=== PATIENT | male | born 1945 | race Caucasian/White ===

== ENCOUNTER → 2017-12-18 07:04 | Outpatient (CLI) | payer SELFPAY ==
[2017-12-18 08:29] LABS: AST(SGOT) 18 U/L (15-37); Alanine Aminotransfer ALT/SGPT 27 U/L (16-61); Albumin, Serum 3.6 g/dL (3.2-5.0); Alkaline Phosphatase 84 U/L (45-117); Bilirubin, Direct 0.12 mg/dL (0.00-0.30); Cholesterol 298 mg/dL (200); Globulin 4.4 g/dL (2.2-4.2); High Density Lipoprotein 50 mg/dL; Triglycerides 121 mg/dL; Very Low Density Lipoprotein 24 mg/dL (5-40)
== END ==
PROVIDERS: Family Provider Family Medicine; PCP Family Medicine; Referring Provider Internal Medicine Cardiovascular Disease; Visit Provider Internal Medicine Cardiovascular Disease
DX: E78.5 Hyperlipidemia, unspecified (principal); E78.2 Mixed hyperlipidemia
CPT/HCPCS: 36415; 80061; 80076

== ENCOUNTER → 2019-01-19 07:29 | Outpatient (CLI) | payer SELFPAY ==
[2018-11-07 15:33] VITALS: BMI 25.1
[2019-01-19 08:41] LABS: AST(SGOT) 21 U/L (15-37); Alanine Aminotransfer ALT/SGPT 28 U/L (16-61); Albumin, Serum 3.8 g/dL (3.2-5.0); Alkaline Phosphatase 96 U/L (45-117); Bilirubin, Direct 0.12 mg/dL (0.00-0.30); Cholesterol 291 mg/dL (200); Globulin 4.2 g/dL (2.2-4.2); High Density Lipoprotein 54 mg/dL; Triglycerides 113 mg/dL; Very Low Density Lipoprotein 23 mg/dL (5-40)
== END ==
PROVIDERS: Family Provider Family Medicine; PCP Family Medicine; Referring Provider Nurse Practitioner Family; Visit Provider Nurse Practitioner Family
DX: E78.5 Hyperlipidemia, unspecified (principal)
CPT/HCPCS: 36415; 80061; 80076

== ENCOUNTER 2019-08-03 06:44 | Inpatient (IN) | payer OTHER, SELFPAY ==
[2018-11-07 15:33] VITALS: BMI 25.1
[2019-08-03] VITALS (10 sets, daily range): BP systolic 136–163; BP diastolic 48–79; PULSE 60–68; RESP 14–23; TEMP 37–37.4; O2SAT 91–98; BMI 25.9; BMI 25.4; BMI 25.5
--- NOTE | 2019-08-03 07:26 | EKG12_ITS ---
Test Reason : Blood Pressure : / mmHG Vent. Rate : 063 BPM Atrial Rate : 063 BPM P-R Int : 224 ms QRS Dur : 092 ms QT Int : 410 ms P-R-T Axes : 067 050 041 degrees QTc Int : 419 ms Atrial-paced rhythm with prolonged AV conduction Abnormal ECG Confirmed by DEMETRIS DAY, LELIA ([id number]), assistant editor OVI ELLIOTT ([id number]) on 08/06/2019 3:00:51 PM Referred By: UCHE Confirmed By:LELIA WILLSON MD
--- NOTE | 2019-08-03 07:26 | RAD_ITS ---
STUDY: X-RAY CHEST REASON FOR EXAM: Male, 74 years old. COUGH, fever, nausea -- x 2 weeks TECHNIQUE: Single AP portable view of the chest. COMPARISON: February 21, 2017 FINDINGS: Pacemaker device on the left is stable. There are monitoring devices. There are bilateral mid and lower lung groundglass and airspace increased opacities. There is no demonstrated pleural abnormality. Sternal cerclage wires are present from a prior sternotomy. Normal mediastinum and kim. Normal visualized pulmonary arteries. Normal visualized aortic arch and descending thoracic aorta. There is demineralization of the osseous structures. Normal visualized ribs, clavicles, and shoulders. There is no demonstrated abnormality of the visualized soft tissue structures of the upper abdomen. RAD/Chest 1 View (Portable) IMPRESSION: Bilateral pneumonia or edema. Electronically Signed: Ovidio Ambrocio MD at 8:28 EDT , Service support ,
--- NOTE | 2019-08-03 07:27 | ED.DCSUM_ITS ---
History of Present Illness Chief Complaint: Fever Informant: Patient Onset: Weeks - 2 Timing: Continuous Narrative: Patient is a 74-year-old [employer] male with history of aortic valve stenosis, coronary artery disease status post CABG, pacemaker implant and hyperlipidemia presenting with 2 weeks of fever, myalgias, cough and nausea. Patient states is been having low-grade temperatures of 99 which is been checking every morning. States he has had some mild epigastric discomfort which she describes as a nausea. He initially stated he had chest pain but he states it is more of a queasy feeling. He has had multiple contacts who have been diagnosed with COVID-19 through his quaker. Patient states he has been more short of breath and had decreased appetite. He denies any other complaints at this time. He states he is usually quite healthy and active. He does not wear oxygen at baseline. Patient denies any swelling of his extremities, change in his bowel habits, abdominal pain or urinary symptoms. Past Medical History - Allergies and Home Meds Allergies/Adverse Reactions: Allergies atorvastatin [From Lipitor] Allergy (Verified 08/03/19 07:01) Unknown Primary Care Physician: Raymond Whitaker DO [Primary Care Provider] - Past Medical History: - - Aortic stenosis, coronary artery disease, hyper lipidemia, sick sinus syndrome status post pacemaker placement Surgical History: coronary bypass surgery Lives: Spouse/ Significant Other Smoking Status: Never smoker Review of Systems General: Reports: Chills, Fever, Malaise, - - Anorexia. Denies: Sweats Eyes: Denies: Visual changes - bilaterally, Diplopia ENT: Denies: Rhinorrhea, Sore throat Cardiovascular: Denies: Chest pain, Palpitations Respiratory: Reports: Dyspnea, Cough. Denies: Sputum, Dyspnea on exertion Gastrointestinal: Reports: Nausea. Denies: Abdominal pain, Vomiting, Diarrhea, Melena, Hematochezia Genitourinary: Denies: Dysuria, Hematuria, Frequency Musculoskeletal: Denies: Back pain, Extremity Pain Skin: Denies: Rash, Wounds Neurological: Denies: Headache, Weakness, Numbness Physical Exam Vital Signs/Narrative: Vital Signs Temp Pulse Resp BP Pulse Ox 08/03/19 06:45 99.1 F 67 23 H 136/79 H 91 Inital Vital Signs reviewed: Yes General: Well nourished, Well developed, No Acute Distress Head: Normocephalic, Atraumatic Eyes: Perrl, EOMI ENT: Moist mucous membranes, No rhinorrhea Neck: Supple, Nontender, No JVD Cardiovascular: Regular rate, Regular rhythm, Murmur Respiratory: Chest nontender, - - Crackles on the right upper and lower lung josue, tachypnea. Negative for: Decreased Air Movement, Retractions Abdomen: Soft, Nontender, Nondistended, Normal bowel sounds Back: Nontender, Normal Inspection Extremities: Nontender, No edema. Negative for: Edema, Calf Tenderness Skin: Normal color, No rash, - - Very warm to the touch Neurological: Alert, Oriented x3, Cranial nerves II-XII grossly intact, Normal Strength, Normal Sensation Psychological: Normal affect, Normal Mood Diagnostic/Tx/Re-eval Chest X-Ray - ED: 1 View, Read by ED Physician, Read by Radiologist, Right Infiltrate, Left Infiltrate Clinical Impression(s) from Imaging Studies Chest X-Ray 08/03/19 07:26 IMPRESSION: Bilateral pneumonia or edema. Electronically Signed: Ovidio Ambrocio MD at 8:28 EDT , Service support , Laboratory Data 08/03/19 08/03/19 08/03/19 07:00 07:00 07:00 WBC 10.3 RBC 3.83 L Hgb 12.1 L Hct 35.9 L MCV 93.7 MCH 31.6 MCHC 33.7 RDW Std Deviation 43.3 RDW Coeff of Jazmine 12.7 Plt Count 358 MPV 10.7 Immature Gran % (Auto) 0.400 Neut % (Auto) 80.4 H Lymph % (Auto) 9.7 L [place] % (Auto) 8.7 Eos % (Auto) 0.5 Baso % (Auto) 0.3 Absolute Neuts (auto) 8.3 H Absolute Lymphs (auto) 1.00 Nucleated RBC % 0 Sodium 134 L Potassium 3.8 Chloride 102 Carbon Dioxide 25.0 Anion Gap 7 BUN 14 Creatinine 0.94 Estim Creat Clear Calc 69.99 Est GFR (MDRD) Af Amer 101 Est GFR (MDRD) Non-Af 84 BUN/Creatinine Ratio 14.9 Glucose 134 H Lactic Acid 1.4 Calcium 8.7 Total Bilirubin 0.70 AST 33 ALT 44 Alkaline Phosphatase 107 Troponin I < 0.015 Total Protein 7.8 Albumin 2.6 L Globulin 5.2 H Albumin/Globulin Ratio 0.5 L COVID-19 (LELO) 08/03/19 07:00 WBC RBC Hgb Hct MCV MCH MCHC RDW Std Deviation RDW Coeff of Jazmine Plt Count MPV Immature Gran % (Auto) Neut % (Auto) Lymph % (Auto) [place] % (Auto) Eos % (Auto) Baso % (Auto) Absolute Neuts (auto) Absolute Lymphs (auto) Nucleated RBC % Sodium Potassium Chloride Carbon Dioxide Anion Gap BUN Creatinine Estim Creat Clear Calc Est GFR (MDRD) Af Amer Est GFR (MDRD) Non-Af BUN/Creatinine Ratio Glucose Lactic Acid Calcium Total Bilirubin AST ALT Alkaline Phosphatase Troponin I Total Protein Albumin Globulin Albumin/Globulin Ratio COVID-19 (LELO) Cancelled - Rhythm Strip Rhythm Strip: Sinus Rhythm Rate: 63 Ectopy: None - EKG Initial EKG Interpretation: Sinus Rhythm, - - Paced rhythm at a rate of 63 Normal intervals except for prolonged GA interval [address] segments - Medical Decision Making Evaluated for 2 weeks of fever, myalgias, cough and progressive shortness of breath. Patient is 91% at rest on arrival via EMS. He has had multiple exposures to COVID patients in the community. Patient is tachypneic. He is given IV fluids. Chest x-ray is concerning for by lateral pneumonia. COVID swab is pending but I have a high suspicion for coronavirus infection as a cause of his symptoms. He will be placed on empiric antibiotics, Rocephin and azithromycin. Due to patient's bilateral pneumonia and O2 saturation he will be admitted for further treatment and monitoring. He is agreeable with this plan. He is otherwise stable. He does not have any other significant laboratory abnormalities. ED Disposition - Plan for ED Patient: Disposition: Acute Care Hospital [facility] Diagnosis: Bilateral pneumonia, Suspected COVID-19 virus infection, Dyspnea Referrals: Raymond Whitaker DO [Primary Care Provider] -
[2019-08-03 07:46] LABS: Absolute Neutrophil Count 8.3 X10^3/uL (2.0-7.7); Basophil# 0.03 X10^3/uL; Basophil% 0.3 % (0-1); Eosinophil# 0.05 X10^3/uL; Eosinophils% 0.5 % (0-5); Hematocrit 35.9 % (40-54); Hemoglobin 12.1 g/dL (13.0-16.5); Lymphocyte % 9.7 % (19-41); Mean Corp Hgb Conc 33.7 g/dL (32-36); Mean Corpuscular Hgb 31.6 pg (27.0-32.0); Mean Corpuscular Volume 93.7 fL (80-94); Mean Platelet Vol. 10.7 fl (6.2-12.0); Monocyte# 0.89 X10^3/uL; Monocyte% 8.7 % (0-10); NRBC Flagged by Analyzer 0 % (0-5); Neutrophil # 8.25 X10^3/uL (2.7-7.7); Neutrophil % 80.4 % (47-70); Platelet Count 358 K/mm3 (150-450); RBC Distribution Width CV 12.7 % (11.6-14.6); RBC Distribution Width SD 43.3 fl (35.1-43.9); Red Blood Count 3.83 M/mm3 (4.6-6.2); White Blood Count 10.3 K/mm3 (4.4-11.0)
[2019-08-03 07:58] LABS: ALB/GLOB Ratio 0.5 RATIO (0.9-2.4); AST(SGOT) 33 U/L (15-37); Alanine Aminotransfer ALT/SGPT 44 U/L (16-61); Albumin, Serum 2.6 g/dL (3.2-5.0); Alkaline Phosphatase 107 U/L (45-117); Anion Gap 7 (5-15); BUN 14 mg/dL (7-18); BUN/Creat Ratio 14.9 RATIO (10-20); Calcium,Total 8.7 mg/dL (8.5-10.1); Chloride 102 mmol/L (98-107); Creatinine, Serum 0.94 mg/dL (0.70-1.30); EST Glomerular Filtration Rate 84 mL/min (>60); Est Glom Filt Rate - Afr Amer 101 mL/min (>60); Estimated Creatinine Clearance 69.99 ml/min; Globulin 5.2 g/dL (2.2-4.2); Glucose 134 mg/dL (74-106); Lactic Acid 1.4 mmol/L (0.4-1.9); Potassium 3.8 mmol/L (3.5-5.1); Protein, Total 7.8 g/dL (6.4-8.2); Sodium Level 134 mmol/L (136-145)
[2019-08-03] MEDS: 0.9% Normal Saline 1,000 ML 125 ML IV (08:04)
[2019-08-03] MEDS: Acetaminophen 325 MG Tablet 650 MG PO (08:05)
[2019-08-03] MEDS: Ondansetron 4 MG/2 ML Vial IV (08:05)
--- NOTE | 2019-08-03 09:01 | HP.PCM_ITS ---
Problem List (1) Bilateral pneumonia Status: Acute Qualifiers: Pneumonia type: due to unspecified organism Lung location: unspecified part of lung Qualified Code(s): J18.9 - Pneumonia, unspecified organism (2) Suspected COVID-19 virus infection Status: Acute (3) Nonrheumatic aortic (valve) stenosis with insufficiency Status: Chronic (4) Atherosclerosis of coronary artery of [place] heart without angina pectoris Status: Chronic Qualifiers: Coronary Disease-Associated Artery/Lesion type: [place] artery Qualified Code(s): I25.10 - Atherosclerotic heart disease of [place] coronary artery without angina pectoris (5) History of permanent cardiac pacemaker placement Status: Resolved (6) H/O coronary artery bypass surgery Status: Resolved Comment: CABG x 4 RENEE-LASD, SVG-D1, SVG-OM1, SVG-RPDA 08/16/2005; redo sternotomy AVR w/ 23 mm Medtronic bioprosthetic heart valve and CABG x 1 SVG-RPDA 08/24/2015 (7) H/O aortic valve replacement Status: Resolved Comment: redo sternotomy AVR w/ 23 mm Medtronic bioprosthetic heart valve and CABG x 1 SVG-RPDA (8) History of coronary artery stent placement Status: Resolved Comment: PCI-PATRICIA Mid LCx w/ 4.0 x 28 mm Promus Stent, PATRICIA-Mid SVG-RPDA w/ 4 x 15 mm Promus 04/28/09, [id number] LM w/ 4.0 x 28 mm Xience Alpine Stent 09/25/2014 (9) Sick sinus syndrome Status: Chronic History of Present Illness Date of Admission: 08/03/19 Chief Complaint: Fever, Dyspnea, Cough, Nausea The patient is a 74 y/o M w/ PMHx: HLD, Hypothyroidism, Hx Sick sinus syndrome s/p pacemaker status, CAD s/p CABG x 4 and PCI, Valvular Heart Disease s/p AVR with medtronic bioprosthetic valve who presents to the [facility] ED on 08/03/19 with history of dyspnea with dry cough, poor appetite, nausea with dry heaving, myalgias and arthralgias x 2 weeks with intermittent low grade temperatures with multiple ill contacts at his mandaeism who have been diagnosed with COVID-19 prompting eventual ED presentation given he had been worsening. He notes also concurrent intermittent BL frontal throbbing headache and alteration to both his sense of taste and smell. He denies any diarrhea or abdominal pain. Work-up in the ED included T 99.1, heart rate 67, BP 136/79, respiratory rate 23, 91% on room air, CBC with WBC 10.3, hemoglobin 12.1, platelet 358 with left shift, CMP with sodium 134, glucose 134, lactic acid 1.4, troponin less than 0.015, blood culture x2 pending per ED, COVID testing pending per ED, chest x-ray with concern for possible bilateral pneumonia versus edema, EKG w/ sinus rhythm, paced without acute evidence of ischemia. In the ED patient administered tylenol, zofran, NS. Discussed presentation with the ED physician and requested azithromycin and Rocephin be administered. Past Medical History Past Medical History (Chronic Problems): Chronic Problems (Last Updated 10/17/18 @ 15:15 by Zoe Diaz) Nonrheumatic aortic (valve) stenosis with insufficiency (Chronic) Atherosclerosis of coronary artery of [place] heart without angina pectoris (Chronic) Atherosclerosis of coronary artery bypass graft without angina pectoris (Chron ic) HLD (hyperlipidemia) (Chronic) Sick sinus syndrome (Chronic) Medical History: Medical History (Last Updated 10/17/18 @ 15:15 by Zoe Diaz) Nonrheumatic aortic (valve) stenosis with insufficiency (Chronic) I35.2 Atherosclerosis of coronary artery of [place] heart without angina pectoris (Chronic) I25.10 Atherosclerosis of coronary artery bypass graft without angina pectoris (Chronic) I25.810 HLD (hyperlipidemia) (Chronic) E78.5 Sick sinus syndrome (Chronic) I49.5 Hypothyroidism E03.9 Allergies atorvastatin [From Lipitor] Allergy (Verified 08/03/19 07:01) Unknown Home Medications: Ambulatory Orders Medication Instructions Recorded aspirin 81 mg tablet,delayed 81 mg PO QDAY 02/15/17 release coenzyme Q10 100 mg capsule 100 mg PO QDAY 02/15/17 nitroglycerin 0.4 mg sublingual 0.4 mg SUBLINGUAL Q5M PRN 02/15/17 tablet levothyroxine 50 mcg capsule 50 mcg PO DAILY #30 cap 03/20/18 simvastatin 40 mg tablet 40 mg PO QPM #90 tab 11/07/18 Surgical History: Surgical History (Last Updated 08/07/19 @ 15:15 by Zoe Diaz) History of permanent cardiac pacemaker placement (Resolved) Onset Date: 02/20/17 Z95.0 H/O coronary artery bypass surgery (Resolved) Onset Date: 08/24/15 Z95.1 CABG x 4 RENEE-LASD, SVG-D1, SVG-OM1, SVG-RPDA 08/16/2005; redo sternotomy AVR w/ 23 mm Medtronic bioprosthetic heart valve and CABG x 1 SVG-RPDA 08/24/2015 H/O aortic valve replacement (Resolved) Onset Date: 08/24/15 Z95.2 redo sternotomy AVR w/ 23 mm Medtronic bioprosthetic heart valve and CABG x 1 SVG-RPDA History of coronary artery stent placement (Resolved) Onset Date: 09/25/14 Z95.5 PCI-PATRICIA Mid LCx w/ 4.0 x 28 mm Promus Stent, PATRICIA-Mid SVG-RPDA w/ 4 x 15 mm Promus 04/28/09, [id number] LM w/ 4.0 x 28 mm Xience Alpine Stent 09/25/2014 Surgical History: coronary bypass surgery, - - CABG x4, PCI, pacemaker basement, AVR. Psychiatric History: No pertinent psych hx Lives: Spouse/ Significant Other Smoking Status: Never smoker Tobacco Use: Non-smoker Alcohol: None Drugs: None - *Family History Maternal Family History: Family History (Last Reviewed 10/31/17 @ 15:[address] Hoang Benson MD) Father CAD (coronary artery disease) Brother CAD (coronary artery disease) Sister Myocardial infarction CAD (coronary artery disease) History Items: High Cholesterol, Heart Disease, Hypertension Paternal Family History: Family History (Last Reviewed 10/31/17 @ 15:[address] Hoang Benson MD) Father CAD (coronary artery disease) Brother CAD (coronary artery disease) Sister Myocardial infarction CAD (coronary artery disease) History Items: High Cholesterol, Heart Disease, Hypertension Review of Systems Constitutional: Reports: Anorexia, Chills, Fever, Malaise, Weakness, Fatigue. Denies: Weight Change HEENT: Reports: Head Aches, Nasal Congestion, Sinus Congestion. Denies: Sinus Drainage Cardiovascular: Denies: Chest Pain, Chest Pressure, Chest Tightness, Edema, Light Headedness, Orthopnea, Palpitations Respiratory: Reports: Cough, Shortness of Breath, Shortness of breath at rest, Shortness of breath upon exertion. Denies: Sputum production, Wheezing Gastrointestinal: Reports: Nausea, Vomiting. Denies: Abdominal Pain Genitourinary: Denies: Dysuria Musculoskeletal: Reports: Joint Pain, Muscle pain. Denies: Joint Tenderness Skin: Denies: Rash, Wounds Neurological: Denies: Numbness, Tingling, Focal weakness Psychiatric: Denies: Anxiety, Depression, Homicidal Ideations, Suicidal Ideations Hematologic/ Lymphatic: Reports: Easy Bruising, Easy Bleeding VTE Information - Inpt Only VTE Present on Admission: No VTE Mechan Device Prophylaxis: SCD's VTE Pharm Prophylaxis ordered?: Yes Patient Problems: Active and Suspected Problems (Last Updated 10/17/18 @ 15:15 by Zoe Diaz) Bilateral pneumonia (Acute) Suspected COVID-19 virus infection (Acute) Dyspnea (Acute) Subjective: Patient seated upright in the ED bed, no acute distress, ill-appearing and fatigued. Objective: Physical Examination: General: awake, alert, oriented x 3 and cooperative, seated upright in the ED bed, fatigued and ill-appearing but no obvious distress. Skin: normal color, turgor, no icterus, cyanosis. HEENT: AT/NC, EOMI, PERRLA, dry MM, no carotid bruits or JVD noted. Lungs: Diminished breath sounds, greater bases, mild rales bilateral bases, no obvious rhonchi or wheezing, no evidence of distress. Heart: Regular rate and rhythm (paced); no gallop, rub audible. Abdomen: soft, NTTP, ND, mildly hyperactive BS, no HSM. Extremities: no cyanosis, clubbing, or edema. Neurological: patient awake, alert, oriented as noted; cognitive function appears baseline intact; pupils equally reactive to light and accomodation; cranial nerves II-XII grossly normal, moving all 4 extremities, no focal deficits, strength moderately to severely global decrease secondary to acute presentation. Psychiatric: affect appears fatigued and ill-appearing, no acute evidence of depressive or anxiety feelings. - Physical Exam Vitals/I&O's: Vital Signs Temp Pulse Resp BP Pulse Ox 99.1 F 67 23 H 136/79 H 91 08/03/19 06:45 08/03/19 06:45 08/03/19 06:45 08/03/19 06:45 08/03/19 06:45 Oxygen Delivery Method Room Air Weight: 175 lb 7.807 oz Body Mass Index (BMI) 25.9 Laboratory Results 08/03/19 07:00: WBC 10.3, RBC 3.83 L, Hgb 12.1 L, Hct 35.9 L, MCV 93.7, MCH 31.6, MCHC 33.7, RDW Std Deviation 43.3, RDW Coeff of Jazmine 12.7, Plt Count 358, MPV 10.7, Immature Gran % (Auto) 0.400, Neut % (Auto) 80.4 H, Lymph % (Auto) 9.7 L, [place] % (Auto) 8.7, Eos % (Auto) 0.5, Baso % (Auto) 0.3, Absolute Neuts (auto) 8.3 H, Absolute Lymphs (auto) 1.00, Nucleated RBC % 0 08/03/19 07:00: Sodium 134 L, Potassium 3.8, Chloride 102, Carbon Dioxide 25.0, Anion Gap 7, BUN 14, Creatinine 0.94, Estim Creat Clear Calc 69.99, Est GFR (MDRD) Af Amer 101, Est GFR (MDRD) Non-Af 84, BUN/Creatinine Ratio 14.9, Glucose 134 H, Calcium 8.7, Total Bilirubin 0.70, AST 33, ALT 44, Alkaline Phosphatase 107, Troponin I < 0.015, Total Protein 7.8, Albumin 2.6 L, Globulin 5.2 H, Albumin/Globulin Ratio 0.5 L 08/03/19 07:00: Lactic Acid 1.4 08/03/19 07:00: COVID-19 (LELO) Cancelled Current Medications Sodium Chloride () 1,000 mls @ 125 mls/hr IV .Q8H JOSEPH Last Admin: 08/03/19 08:04 Dose: 125 mls/hr Documented by: Assessment/Plan All Active Problems (Last Updated 10/17/18 @ 15:15 by Zoe Diaz) Bilateral pneumonia (Acute) Suspected COVID-19 virus infection (Acute) Dyspnea (Acute) History of permanent cardiac pacemaker placement (Resolved 02/20/17) H/O coronary artery bypass surgery (Resolved 08/24/15) H/O aortic valve replacement (Resolved 08/24/15) History of coronary artery stent placement (Resolved 09/25/14) The patient is a 74 y/o M w/ PMHx: HLD, Hypothyroidism, Hx Sick sinus syndrome s/p pacemaker status, CAD s/p CABG x 4 and PCI, Valvular Heart Disease s/p AVR with medtronic bioprosthetic valve who presents to the [facility] ED on 08/03/19 with history of dyspnea with dry cough, poor appetite, nausea with dry heaving, myalgias and arthralgias x 2 weeks with intermittent low grade temperatures with multiple ill contacts at his [employer]ae[employer] who have been diagnosed with COVID-19 prompting eventual ED presentation given he had been worsening. 1. Acute Dyspnea, Cough, N/Dry heaves, Fever with c/o Bilateral Pneumonia secondary to Suspected Acute Viral Syndrome, COVID-19: Will admit to the COVID unit pending the ED COVID testing, will maintain on oxygen with wean as tolerated to room air, continue PRN albuterol, maintain on IV Rocephin and Azithromycin, HOB, IS parameters w/ pending sputum cultures and urine antigens, will obtain procalcitonin, CRP, CPK, Ferritin, LDH, d-dimer, continue supportive care including q 2 hour turning including prone given no prone bed availability, obtain BNP but clinically not consistent, if not marked continue judicious hydration, If patient worsens with need for oxygen >6 L would plan intubation with ICU physician continued care. Bld cx x 2 obtained in the ED. If D-dimer significantly elevated would pursue CTPA and start on therapeutic lovenox pending these results. If initial COVID negative will plan repeat testing in 24 hours. 2. CAD: Status post CABG x4 and PCI, continue aspirin, statin therapy, not on beta-justina, encourage continued outpatient follow-up, troponin x1 normal, continue to cycle and maintain on telemetry given cardiac history with #1 presentation. 3. Valvular heart disease: Status post AVR, Medtronic bioprosthetic valve. 4. Hypothyroidism: Continue home synthroid regimen, TSH pending. 5. Hyperlipidemia: Continue home statin regimen. 6. History of sick sinus syndrome: Status post pacemaker status. 7. DVT prophylaxis: SCDs, Lovenox with pending d-dimer as noted. 8. CODE status: Patient DEBI is his and living will is currently in place. Discussed CODE status at length including difference between FULL code, D NR-CCA and DNR-CC status. Following discussions about the differences in these status, requested full code status. Advanced Care Planning Face to Face Time: 16 minutes. Inpatient E&M: 30232 Init Hosp L3 Procedures: 45655 Advncd Care Plan 30 Min
--- NOTE | 2019-08-03 09:21 | NURSING ---
ms2 covid sam pneumonia,, suspect covid white
--- NOTE | 2019-08-03 09:35 | NURSING ---
[id number]
[2019-08-03] MEDS: Ceftriaxone 1 GM/50 ML BAG IV (09:41)
--- NOTE | 2019-08-03 12:12 | CT_ITS ---
STUDY: CTA CHEST REASON FOR EXAM: Male, 74 years old. DYSPNEA, DRY COUGH,NAUSEA W/ DRY HEAVES, LOSS OF APPETITE, LOW GRADE FEVER -- BILAT PNEUMONIA, SUSPECT COVID -- CABG X4, HEART STENT, PACER, AORTIC VALVE REPLACED RADIATION DOSAGE (If Supplied By Facility): CTDIvol = ( 11.8 ) mGy, DLP = ( 427.55 ) mGycm TECHNIQUE: The examination was performed with the intravenous administration of 100CC ISOVUE 370. Post-processing of the angiographic images was performed, with multiplanar reformation and 3D reconstruction. Individualized dose optimization techniques were used for this CT. COMPARISON: None. FINDINGS: Normal enhancement of the main pulmonary artery and right and left pulmonary arteries. Normal enhancement of the bilateral peripheral pulmonary arteries. There is no demonstrated pulmonary embolism. There is atherosclerotic calcification of the aortic arch with tortuosity. There is no demonstrated aortic dissection. Normal heart and pericardium. Sternal wires and mediastinal surgical clips compatible with prior CABG. Cardiac conduction device via the left subclavian vein present with leads extending to the right atrium and right ventricle. Aortic valve replacement noted. Few scattered prominent lymph nodes but no dominant shaun adenopathy. Normal hilar regions. No endobronchial lesions demonstrated. Mild scattered bronchiectasis. The lungs are well expanded. There are geographic peripheral dominant areas of groundglass opacity involving multiple pulmonary lobes. There are scattered areas of localized consolidation involving the posterior right upper lobe (image [id number] in the lingula (image 113) Subpleural atelectasis of the bilateral lower lobes identified. No cavitating process. Normal pleura. Normal chest wall structures. There are degenerative changes of thoracic spine. Normal visualized upper abdomen. CT/CTA Chest W/WO Contrast IMPRESSION: 1. No central or segmental pulmonary embolism. 2. Peripheral, bilateral/multilobar groundglass opacities with scattered consolidation. Commonly reported imaging features of COVID-19 PNEUMONIA are present as suspected in provided clinical history. Other processes such as influenza pneumonia, organizing pneumonia, drug toxicity and connective tissue disease can cause similar imaging pattern. Electronically Signed: Franky Hubbard MD ([place]) at 14:36 EDT , Service support ,
[2019-08-03 12:31] LABS: CPK Total, Creatine Kinase 61 U/L (39-308); Ferritin 636 ng/mL (26-388); LDH 277 U/L (87-241); Magnesium 2.2 mg/dL (1.6-2.6)
--- NOTE | 2019-08-03 12:34 | CASEMGMT ---
EVA ARZOLA assessment: Phone interview with patient for initial transition planning/care coordination assessment. EVA ARZOLA introduced self and role at [facility], pt voices understanding and consents to assessment at this time. Pt is A/Ox4 at this time and answers all questions appropriately at this time. Care providers, pharmacy, and demographics verified at this time. Presentation: Nausea, fever, dry cough Admitting dx: Bilat pna, possible COVID PCP: Julianne Specialists: Kelley cardio Preferred Pharmacy: [facility] Insurance: [facility] [place] Pres[place] Benefit: Self Living Will/HPOA: Pt states does have LW/HPOA and is aware that it is not on file at [facility] at this time. Pt states his eldest son, Sudarshan Triplett, is HPOA. LNOK: Sudarshan Triplett, son; Juarez Edward, son in law Living Arrangements: Pt states lives family in home and states no concerns at home at this time. Pt states is independent with ADL's. Pt states good family support. Transportation: Pt states no transportation concerns at this time. DME/HHC: Pt states no current DME and denies need for any at this time. Pt states can get DME from family, if needed. Pt states no hx of HHC or SNF in the past. Pt states no concerns with going home at time of discharge. 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 Pt states does not smoke or drink ETOH. Pt states no further questions/concerns/needs at this time. CM to follow for any further discharge planning/needs. Advised pt to ask for CM if any further questions/concerns/needs arise, voices understanding. Pt Goal: Home Plan[place] EVA ARZOLA
[2019-08-03 12:45] LABS: BNP,B-Type NATRIURETIC PEPTIDE 92.7 pg/mL (0-100); Hemoglobin A1c 6.3 % (3.8-5.6)
[2019-08-03 12:48] LABS: Procalcitonin 0.06 ng/mL (0.00-0.09)
[2019-08-03 13:55] LABS: International Normalized Ratio 1.1; Prothrombin Time (Protime)PT. 13.7 SECONDS (11.7-14.9)
[2019-08-03 13:56] LABS: Partial Thromboplast Time 32.1 Seconds (24.1-36.2)
[2019-08-03 14:16] LABS: M R Staph aureus DNA By PCR Negative (Negative); Probe Check PASS; Specimen Processing Control PASS
[2019-08-03] MEDS: Enoxaparin 80 MG/0.8 ML Syringe SC ×2 (15:01→21:07)
[2019-08-03] MEDS: Simvastatin 20 MG Tablet 40 MG PO (21:07)
[2019-08-03] MEDS: Famotidine 20 MG Tablet PO (21:07)
[2019-08-03] MEDS: guaiFENesin 10 ML UDC (200MG/10ML) 20 ML PO (21:14)
[2019-08-04] VITALS (21 sets, daily range): BP systolic 112–167; BP diastolic 33–103; PULSE 60; RESP 14–19; TEMP 36.8–37.1; O2SAT 84–98
[2019-08-04 04:48] LABS: Absolute Lymphocyte Count 2.14 X10^3/uL (0.83-4.51); Absolute Neutrophil Count 6.1 X10^3/uL (2.0-7.7); Basophil# 0.04 X10^3/uL; Basophil% 0.4 % (0-1); Eosinophil# 0.15 X10^3/uL; Eosinophils% 1.6 % (0-5); Hematocrit 33.7 % (40-54); Hemoglobin 11.3 g/dL (13.0-16.5); Lymphocyte # 2.14 X10^3/ul (4.0); Lymphocyte % 22.4 % (19-41); Mean Corp Hgb Conc 33.5 g/dL (32-36); Mean Corpuscular Hgb 31.7 pg (27.0-32.0); Mean Corpuscular Volume 94.4 fL (80-94); Mean Platelet Vol. 10.6 fl (6.2-12.0); Monocyte# 1.15 X10^3/uL; NRBC Flagged by Analyzer 0 % (0-5); Neutrophil # 6.05 X10^3/uL (2.7-7.7); Neutrophil % 63.2 % (47-70); Platelet Count 407 K/mm3 (150-450); RBC Distribution Width CV 12.7 % (11.6-14.6); RBC Distribution Width SD 43.9 fl (35.1-43.9); Red Blood Count 3.57 M/mm3 (4.6-6.2); White Blood Count 9.6 K/mm3 (4.4-11.0)
[2019-08-04 05:04] LABS: ALB/GLOB Ratio 0.5 RATIO (0.9-2.4); AST(SGOT) 43 U/L (15-37); Alanine Aminotransfer ALT/SGPT 62 U/L (16-61); Albumin, Serum 2.4 g/dL (3.2-5.0); Alkaline Phosphatase 114 U/L (45-117); Anion Gap 5 (5-15); BUN 15 mg/dL (7-18); BUN/Creat Ratio 16.5 RATIO (10-20); Calcium,Total 8.5 mg/dL (8.5-10.1); Chloride 104 mmol/L (98-107); Creatinine, Serum 0.91 mg/dL (0.70-1.30); EST Glomerular Filtration Rate 87 mL/min (>60); Est Glom Filt Rate - Afr Amer 105 mL/min (>60); Globulin 4.9 g/dL (2.2-4.2); Glucose 99 mg/dL (74-106); Potassium 4.1 mmol/L (3.5-5.1); Protein, Total 7.3 g/dL (6.4-8.2); Sodium Level 136 mmol/L (136-145)
--- NOTE | 2019-08-04 06:43 | PCM.PN.HOSP ---
Patient Problems: Active and Suspected Problems (Last Updated 10/17/18 @ 15:15 by Zoe Diaz) Bilateral pneumonia (Acute) Suspected COVID-19 virus infection (Acute) Dyspnea (Acute) Subjective: The patient is a 74 y/o M w/ PMHx: HLD, Hypothyroidism, Hx Sick sinus syndrome s/p pacemaker status, CAD s/p CABG x 4 and PCI, Valvular Heart Disease s/p AVR with medtronic bioprosthetic valve who presents to the [facility] ED on 08/03/19 with history of dyspnea with dry cough, poor appetite, nausea with dry heaving, myalgias and arthralgias x 2 weeks with intermittent low grade temperatures with multiple ill contacts at his [employer] who have been diagnosed with COVID-19 prompting eventual ED presentation given he had been worsening. Admitted to the COVID unit, 08/03/19 COVID negative, given high suspicion repeat testing this AM 08/04/19 pending, will maintain on oxygen with wean as tolerated to room air, continue PRN albuterol, maintain on IV Rocephin and Azithromycin, HOB, IS parameters w/ pending sputum cultures, negative urine antigens, negative respiratory viral panel, Bld Cx x 2 pending per ED, D-dimer 2.50, coags unremarkable otherwise, ferritin 636, LDH 277, T CK 61, CRP 118, BNP 92.7, pro calcitonin 0.06, troponin initial less than 0.015 and trended x2 and remained unremarkable, obtained CTPA with no central segmental pulmonary emboli however peripheral bilateral multilobar groundglass opacities with scattered consolidations consistent with COVID-19, judicious hydration, continue supportive care including q 2 hour turning including prone given no prone bed availability, oxygen testing performed 08/04/19 AM and significant hypoxia with ambulation trial therefore per discussion with pulmonary recommendations will continue inpatient care and reassess for discharge 08/05/19. Admission glucose 134, hemoglobin A1c obtained and noted to be 6.3%, encourage continued outpatient follow-up as patient at risk for developing diabetes mellitus type II. Patient overnight with continued hypoxia if off oxygen or with any exertion and ongoing mild dry cough with some dyspnea sensation but he notes that he is improved since initial presentation. He does report some nausea and asking for antiemetic currently. He denies any emesis, abdominal pain, diarrhea. He notes that his decreased sense of taste and smell has mildly improved. Oxygenation testing performed to ascertain the patient appropriate discharge however patient with significant hypoxia with exertion therefore plan continued inpatient care until clinically improved and appropriate for discharge to which patient is amenable. Patient denies fevers, chills, emesis, abdominal pain, chest pain. Objective: Physical Examination: General: awake, alert, oriented x 3 and cooperative, seated upright in the ED bed, improved appearance, less fatigued, NAD. Skin: normal color, turgor, no icterus, cyanosis. HEENT: AT/NC, EOMI, PERRLA, improved less dry MM. Lungs: Diminished breath sounds, greater bases, still minimal rales bilateral bases, improved effort, no obvious rhonchi or wheezing. Heart: Regular rate and rhythm (paced); no gallop, rub audible. Abdomen: soft, NTTP, ND, normalized BS. Extremities: no cyanosis, clubbing, or edema. Neurological: patient awake, alert, oriented as noted; cognitive function appears baseline intact; pupils equally reactive to light and accomodation; cranial nerves II-XII grossly normal, moving all 4 extremities, no focal deficits, strength improving, moderately to severely global decreased secondary to acute presentation. Psychiatric: affect appears improved, less fatigued, less ill-appearing, no acute evidence of depressive or anxiety feelings. Vitals/I&O's: Vital Signs Temp Pulse Resp BP Pulse Ox 98.8 F 60 15 112/33 L 91 08/04/19 04:47 08/04/19 04:47 08/04/19 04:47 08/04/19 04:47 08/04/19 04:47 Oxygen Flow Rate (L/min) 2 Oxygen Delivery Method Nasal Cannula Weight: 172 lb 9.951 oz Body Mass Index (BMI) 25.4 Intake and Output for Last 24 Hours 08/02/19 08/03/19 08/04/19 23:59 23:59 23:59 Intake Total 1855 / 1855 30 / 30 Output Total 400 / 400 Balance 1455 / 1455 30 / 30 Microbiology Past 72 Hours 08/03/19 07:50 Blood Culture (Wb) - Anticubital Left Blood Culture - Preliminary 08/03/19 13:25 Urine, Clean Catch Streptococcus pneumoniae Antigen (M - Final 08/03/19 13:25 Urine, Clean Catch Legionella Antigen - Final 08/03/19 07:55 Mucosa - Nose Respiratory Panel (PCR) - Final 08/03/19 07:50 Mucosa - Nasopharyngeal Coronavirus COVID-19 PCR - Final Laboratory Results 08/03/19 07:00: WBC 10.3, RBC 3.83 L, Hgb 12.1 L, Hct 35.9 L, MCV 93.7, MCH 31.6, MCHC 33.7, RDW Std Deviation 43.3, RDW Coeff of Jazmine 12.7, Plt Count 358, MPV 10.7, Immature Gran % (Auto) 0.400, Neut % (Auto) 80.4 H, Lymph % (Auto) 9.7 L, [place] % (Auto) 8.7, Eos % (Auto) 0.5, Baso % (Auto) 0.3, Absolute Neuts (auto) 8.3 H, Absolute Lymphs (auto) 1.00, Nucleated RBC % 0 08/03/19 07:00: Sodium 134 L, Potassium 3.8, Chloride 102, Carbon Dioxide 25.0, Anion Gap 7, BUN 14, Creatinine 0.94, Estim Creat Clear Calc 69.99, Est GFR (MDRD) Af Amer 101, Est GFR (MDRD) Non-Af 84, BUN/Creatinine Ratio 14.9, Glucose 134 H, Calcium 8.7, Total Bilirubin 0.70, AST 33, ALT 44, Alkaline Phosphatase 107, Troponin I < 0.015, Total Protein 7.8, Albumin 2.6 L, Globulin 5.2 H, Albumin/Globulin Ratio 0.5 L 08/03/19 07:00: Lactic Acid 1.4 08/03/19 07:00: COVID-19 (LELO) Cancelled 08/03/19 07:00: D-Dimer Quant (PE/DVT) 2.50 H* 08/03/19 07:00: Magnesium 2.2, Ferritin 636 H, Lactate Dehydrogenase 277 H, Total Creatine Kinase 61, C-React Prot Ext Range 118.00 H 08/03/19 07:00: B-Natriuretic Peptide 92.7 08/03/19 07:00: Hemoglobin A1c 6.3 H 08/03/19 07:00: Procalcitonin 0.06 08/03/19 12:10: MRSA (PCR) Negative 08/03/19 12:10: Troponin I < 0.015 08/03/19 13:25: PT 13.7, INR 1.1, APTT 32.1 08/03/19 15:00: Troponin I < 0.015 08/04/19 04:27: WBC 9.6, RBC 3.57 L, Hgb 11.3 L, Hct 33.7 L, MCV 94.4 H, MCH 31.7, MCHC 33.5, RDW Std Deviation 43.9, RDW Coeff of Jazmine 12.7, Plt Count 407, MPV 10.6, Immature Gran % (Auto) 0.400, Neut % (Auto) 63.2, Lymph % (Auto) 22.4, [place] % (Auto) 12.0 H, Eos % (Auto) 1.6, Baso % (Auto) 0.4, Absolute Neuts (auto) 6.1, Absolute Lymphs (auto) 2.14, Nucleated RBC % 0 08/04/19 04:27: Sodium 136, Potassium 4.1, Chloride 104, Carbon Dioxide 27.0, Anion Gap 5, BUN 15, Creatinine 0.91, Estim Creat Clear Calc 72.30, Est GFR (MDRD) Af Amer 105, Est GFR (MDRD) Non-Af 87, BUN/Creatinine Ratio 16.5, Glucose 99, Calcium 8.5, Total Bilirubin 0.40, AST 43 H, ALT 62 H, Alkaline Phosphatase 114, Total Protein 7.3, Albumin 2.4 L, Globulin 4.9 H, Albumin/Globulin Ratio 0.5 L Current Medications Acetaminophen (Tylenol) 650 mg PO Q4H PRN PRN PRN Reason: Pain Score 1-10/Temp > 100.7 F Al Hydroxide/Mg Hydroxide (Mylanta Ii) 30 ml PO Q6H PRN PRN PRN Reason: Gastric Burning Albuterol Sulfate (Ventolin Aerosols) 2.5 mg INHALATION Q2H PRN PRN PRN Reason: Dyspnea, wheezing Aspirin (Ecotrin) 81 mg PO DAILY [facility] Azithromycin (Zithromax) 500 mg PO Q24 [facility] Dextrose (D50w Syringe) 0 gm IV X1 PRN; Protocol PRN Reason: Hypoglycemia Enoxaparin Sodium (Lovenox) 80 mg SC BID [facility] Last Admin: 08/03/19 21:07 Dose: 80 mg Documented by: Famotidine (Pepcid) 20 mg PO BID [facility] Last Admin: 08/03/19 21:07 Dose: 20 mg Documented by: Glucagon () 1 mg IM .X1 PRN PRN Reason: Hypoglycemia Guaifenesin (Robitussin) 20 ml PO Q4H PRN PRN PRN Reason: COUGH Last Admin: 08/03/19 21:14 Dose: 20 ml Documented by: Hydralazine HCl (Apresoline Iv) 10 mg IV Q4H PRN PRN PRN Reason: SBP > 160 Ceftriaxone Sodium 2 gm/ (Sodium Chloride) 50 mls @ 100 mls/hr IV Q24 [facility] Levothyroxine Sodium (Synthroid) 50 mcg PO DAILY [facility] Magnesium Hydroxide (Milk Of Magnesia) 30 ml PO DAILY PRN PRN PRN Reason: Constipation Melatonin (Melatonin) 3 mg PO QHS PRN PRN PRN Reason: INSOMNIA Morphine Sulfate () 2 mg IV Q3H PRN PRN PRN Reason: Pain Score 6-10/10 Nitroglycerin (Nitrostat) 0.4 mg SUBLINGUAL Q5M PRN PRN Reason: CARDIAC/CHEST PAIN Ondansetron HCl (Zofran) 4 mg IV Q8H PRN PRN PRN Reason: NAUSEA/VOMITING Oxycodone HCl (Oxyir) 5 mg PO Q4H PRN PRN PRN Reason: Pain Score 4-5/10 Prochlorperazine Edisylate (Compazine Iv) 5 mg IV Q4H PRN PRN PRN Reason: Breakthrough Nausea/Vomiting Psyllium Hydrophilic Mucilloid (Metamucil) 1 packet PO DAILY PRN PRN PRN Reason: Constipation Senna/Docusate Sodium (Senokot-S, Khalida-Colace) 2 tablet PO BID PRN PRN PRN Reason: Constipation Simvastatin (Zocor) 40 mg PO QPM [facility] Last Admin: 08/03/19 21:07 Dose: 40 mg Documented by: Sodium Chloride () 10 - 40 ml IV UD PRN PRN Reason: SALINE FLUSH Throat Lozenges (Cepacol Sore Throat Lozenge) 1 lozenge MUCOUS MEM Q2H PRN PRN PRN Reason: SORE THROAT STROKE Vital Signs/Narrative: Vital Signs Temp Pulse Resp BP Pulse Ox 08/04/19 04:47 98.8 F 60 15 112/33 L 91 08/04/19 04:00 60 Medical Necessity - Tobacco Use Smoking Status: Never smoker Tobacco Use: Non-smoker Assessment/Plan All Active Problems (Last Updated 10/17/18 @ 15:15 by Zoe Diaz) Bilateral pneumonia (Acute) Suspected COVID-19 virus infection (Acute) Dyspnea (Acute) History of permanent cardiac pacemaker placement (Resolved 02/20/17) H/O coronary artery bypass surgery (Resolved 08/24/15) H/O aortic valve replacement (Resolved 08/24/15) History of coronary artery stent placement (Resolved 09/25/14) The patient is a 74 y/o M w/ PMHx: HLD, Hypothyroidism, Hx Sick sinus syndrome s/p pacemaker status, CAD s/p CABG x 4 and PCI, Valvular Heart Disease s/p AVR with medtronic bioprosthetic valve who presents to the [facility] ED on 08/03/19 with history of dyspnea with dry cough, poor appetite, nausea with dry heaving, myalgias and arthralgias x 2 weeks with intermittent low grade temperatures with multiple ill contacts at his [employer] who have been diagnosed with COVID-19 prompting eventual ED presentation given he had been worsening. 1. Acute Dyspnea, Cough, N/Dry heaves, Fever with c/o Bilateral Pneumonia secondary to Suspected Acute Viral Syndrome, COVID-19: Admitted to the COVID unit, 08/03/19 COVID negative, given high suspicion repeat testing this AM 08/04/19 pending, will maintain on oxygen with wean as tolerated to room air, continue PRN albuterol, maintain on IV Rocephin and Azithromycin, HOB, IS parameters w/ pending sputum cultures, negative urine antigens, negative respiratory viral panel, Bld Cx x 2 pending per ED, D-dimer 2.50, coags unremarkable otherwise, ferritin 636, LDH 277, T CK 61, CRP 118, BNP 92.7, pro calcitonin 0.06, troponin initial less than 0.015 and trended x2 and remained unremarkable, obtained CTPA with no central segmental pulmonary emboli however peripheral bilateral multilobar groundglass opacities with scattered consolidations consistent with COVID-19, judicious hydration, continue supportive care including q 2 hour turning including prone given no prone bed availability, oxygen testing performed 08/04/19 AM and significant hypoxia with ambulation trial therefore per discussion with pulmonary recommendations will continue inpatient care and reassess for discharge 08/05/19. 2. Hyperglycemia: Admission glucose 134, hemoglobin A1c obtained and noted to be 6.3%, encourage continued outpatient follow-up as patient at risk for developing diabetes mellitus type 2. 3. CAD: Status post CABG x4 and PCI, continue aspirin, statin therapy, not on beta-justina, encourage continued outpatient follow-up, troponin x1 normal, continue to cycle and maintain on telemetry given cardiac history with #1 presentation. 4. Valvular heart disease: Status post AVR, Medtronic bioprosthetic valve. 5. Hypothyroidism: Continue home synthroid regimen, TSH pending. 6. Hyperlipidemia: Continue home statin regimen. 7. History of sick sinus syndrome: Status post pacemaker status. 8. DVT prophylaxis: SCDs, lovenox 40 u SC BID (CTPA without PE; however, suspect + COVID with elevated d-dimer). 9. CODE status: Full Code. Inpatient E&M: 99436 [facility] Hosp L3
[2019-08-04] MEDS: Ondansetron 4 MG/2 ML Vial IV (08:08)
[2019-08-04] MEDS: 0.9% Saline Lock 10 ML Syringe IV (08:08)
[2019-08-04] MEDS: Famotidine 20 MG Tablet PO ×2 (09:50→21:06)
[2019-08-04] MEDS: Aspirin E.C. 81 MG Tablet PO (09:50)
[2019-08-04] MEDS: Levothyroxine 50 MCG Tablet PO (09:50)
[2019-08-04] MEDS: Azithromycin 250 MG Tablet 500 MG PO (09:50)
[2019-08-04] MEDS: Enoxaparin 80 MG/0.8 ML Syringe SC (09:50)
[2019-08-04] MEDS: BENZOCAINE/MENTHOL 1 LOZENGE MUCOUS MEM (10:28)
[2019-08-04] MEDS: 0.9% Normal Saline 1,000 ML 100 ML IV (10:30)
--- NOTE | 2019-08-04 10:31 | NURSING ---
pt with O2 sat dropping to [id number] when sitting at rest not talking. 2L O2 placed BNC
--- NOTE | 2019-08-04 11:12 | NURSING ---
Patient alert and oriented to person and that he is at a hospital. Discussed with patient about updating family on how well he was doing and he said he did not want that done at this time. When asked if I would be able to update them if they called in, and he was agreeable to that. Will discuss again with him later. Also asked patient if he had a POA and he said he does not.
--- NOTE | 2019-08-04 11:22 | NURSING ---
tried to call to give update on cell phone number given to me by patient, but there is no answer. will try again later
[2019-08-04] MEDS: Simvastatin 20 MG Tablet 40 MG PO (21:06)
[2019-08-04] MEDS: Enoxaparin 40 MG/0.4 ML Syringe SC (21:07)
[2019-08-05] VITALS (16 sets, daily range): BP systolic 107–182; BP diastolic 35–87; PULSE 60–110; RESP 14–20; TEMP 36.7–37.4; O2SAT 93–97
[2019-08-05] MEDS: Acetaminophen 325 MG Tablet 650 MG PO (00:20)
[2019-08-05] MEDS: hydrALAZINE 20 MG/ML Vial 10 MG IV ×2 (00:20→21:29)
[2019-08-05] MEDS: 0.9% Saline Lock 10 ML Syringe IV ×2 (00:21→09:09)
[2019-08-05 03:45] LABS: Absolute Lymphocyte Count 1.88 X10^3/uL (0.83-4.51); Absolute Neutrophil Count 6.2 X10^3/uL (2.0-7.7); Basophil# 0.04 X10^3/uL; Basophil% 0.4 % (0-1); Eosinophil# 0.21 X10^3/uL; Eosinophils% 2.2 % (0-5); Hematocrit 33.3 % (40-54); Hemoglobin 11.2 g/dL (13.0-16.5); Lymphocyte # 1.88 X10^3/ul (4.0); Mean Corp Hgb Conc 33.6 g/dL (32-36); Mean Corpuscular Hgb 31.5 pg (27.0-32.0); Mean Corpuscular Volume 93.8 fL (80-94); Mean Platelet Vol. 10.4 fl (6.2-12.0); Monocyte# 1.04 X10^3/uL; Monocyte% 11.1 % (0-10); NRBC Flagged by Analyzer 0 % (0-5); Neutrophil # 6.18 X10^3/uL (2.7-7.7); Neutrophil % 65.9 % (47-70); Platelet Count 423 K/mm3 (150-450); RBC Distribution Width CV 12.5 % (11.6-14.6); RBC Distribution Width SD 43.2 fl (35.1-43.9); Red Blood Count 3.55 M/mm3 (4.6-6.2); White Blood Count 9.4 K/mm3 (4.4-11.0)
[2019-08-05 04:01] LABS: ALB/GLOB Ratio 0.5 RATIO (0.9-2.4); AST(SGOT) 35 U/L (15-37); Alanine Aminotransfer ALT/SGPT 58 U/L (16-61); Albumin, Serum 2.2 g/dL (3.2-5.0); Alkaline Phosphatase 117 U/L (45-117); Anion Gap 6 (5-15); BUN 18 mg/dL (7-18); BUN/Creat Ratio 18.9 RATIO (10-20); Calcium,Total 8.3 mg/dL (8.5-10.1); Chloride 107 mmol/L (98-107); Creatinine, Serum 0.95 mg/dL (0.70-1.30); EST Glomerular Filtration Rate 83 mL/min (>60); Est Glom Filt Rate - Afr Amer 100 mL/min (>60); Estimated Creatinine Clearance 69.25 ml/min; Globulin 4.6 g/dL (2.2-4.2); Glucose 104 mg/dL (74-106); Protein, Total 6.8 g/dL (6.4-8.2); Sodium Level 138 mmol/L (136-145)
[2019-08-05] MEDS: Aspirin E.C. 81 MG Tablet PO (08:58)
[2019-08-05] MEDS: Levothyroxine 50 MCG Tablet PO (08:59)
[2019-08-05] MEDS: Famotidine 20 MG Tablet PO ×2 (08:59→21:23)
[2019-08-05] MEDS: Azithromycin 250 MG Tablet 500 MG PO (08:59)
[2019-08-05] MEDS: Enoxaparin 40 MG/0.4 ML Syringe SC ×2 (09:00→21:25)
--- NOTE | 2019-08-05 13:15 | PN_ITS ---
Patient Problems: Active and Suspected Problems (Last Updated 10/17/18 @ 15:15 by Zoe Diaz) Bilateral pneumonia (Acute) Suspected COVID-19 virus infection (Acute) Dyspnea (Acute) Reason for Visit: Pneumonia Subjective: Breathing better. Had tachycardia today. No known sick contacts. Vitals/I&O's: Vital Signs Temp Pulse Resp BP Pulse Ox 36.7 C 60 18 117/52 L 94 08/05/19 03:25 08/05/19 09:04 08/05/19 03:25 08/05/19 03:25 08/05/19 03:25 Oxygen Flow Rate (L/min) 3 Oxygen Delivery Method Nasal Cannula Weight: 79.3 kg Body Mass Index (BMI) 25.4 Intake and Output for Last 24 Hours 08/03/19 08/04/19 08/05/19 23:59 23:59 23:59 Intake Total 1855 / 1855 2400 / 2640 410 / 410 Output Total 400 / 400 450 / 450 Balance 1455 / 1455 2400 / 2640 -40 / -40 General: Alert, No apparent distress HEENT: Atraumatic, Normocephalic Oral: Moist Mucosa, No Gingival or Mucosal Lesions/ Ulcerations Neck: No JVD, No Nodes, Thyroid Normal Size and Texture Lungs: Normal air movement, - - bibasilar crackles. Cardiovascular: Regular rate, Regular Rhythm, Normal S1, Normal S2, No murmurs Abdomen: Bowel Sounds Present, Soft, Non Tender, Non-Distended, No Hepato- splenomegaly, Passing Flatus Extremities: No edema, No Calf Tenderness Psych/Mental Status: Normal Affect, Appropriate Microbiology Past 72 Hours 08/03/19 08:10 Blood Culture (Wb) - Right Hand Blood Culture - Preliminary No growth in 48 hours. 08/03/19 07:50 Blood Culture (Wb) - Anticubital Left Blood Culture - Preliminary Staphylococcus species 08/04/19 07:29 Mucosa - Nasopharyngeal Coronavirus COVID-19 PCR - Final 08/03/19 13:25 Urine, Clean Catch Streptococcus pneumoniae Antigen (M - Final 08/03/19 13:25 Urine, Clean Catch Legionella Antigen - Final 08/03/19 07:55 Mucosa - Nose Respiratory Panel (PCR) - Final 08/03/19 07:50 Mucosa - Nasopharyngeal Coronavirus COVID-19 PCR - Final Laboratory Results 08/05/19 03:30: WBC 9.4, RBC 3.55 L, Hgb 11.2 L, Hct 33.3 L, MCV 93.8, MCH 31.5, MCHC 33.6, RDW Std Deviation 43.2, RDW Coeff of Jazmine 12.5, Plt Count 423, MPV 10.4, Immature Gran % (Auto) 0.400, Neut % (Auto) 65.9, Lymph % (Auto) 20.0, [place] % (Auto) 11.1 H, Eos % (Auto) 2.2, Baso % (Auto) 0.4, Absolute Neuts (auto) 6.2, Absolute Lymphs (auto) 1.88, Nucleated RBC % 0 08/05/19 03:30: Sodium 138, Potassium 4.0, Chloride 107, Carbon Dioxide 25.0, Anion Gap 6, BUN 18, Creatinine 0.95, Estim Creat Clear Calc 69.25, Est GFR (MDRD) Af Amer 100, Est GFR (MDRD) Non-Af 83, BUN/Creatinine Ratio 18.9, Glucose 104, Calcium 8.3 L, Total Bilirubin 0.30, AST 35, ALT 58, Alkaline Phosphatase 117, Total Protein 6.8, Albumin 2.2 L, Globulin 4.6 H, Albumin/Globulin Ratio 0.5 L 08/05/19 03:30: Miscellaneous Test Pending Current Medications Acetaminophen (Tylenol) 650 mg PO Q4H PRN PRN PRN Reason: Pain Score 1-10/Temp > 100.7 F Last Admin: 08/05/19 00:20 Dose: 650 mg Documented by: Al Hydroxide/Mg Hydroxide (Mylanta Ii) 30 ml PO Q6H PRN PRN PRN Reason: Gastric Burning Albuterol Sulfate (Ventolin Aerosols) 2.5 mg INHALATION Q2H PRN PRN PRN Reason: Dyspnea, wheezing Aspirin (Ecotrin) 81 mg PO DAILY [facility] Last Admin: 08/05/19 08:58 Dose: 81 mg Documented by: Azithromycin (Zithromax) 500 mg PO Q24 [facility] Last Admin: 08/05/19 08:59 Dose: 500 mg Documented by: Dextrose (D50w Syringe) 0 gm IV X1 PRN; Protocol PRN Reason: Hypoglycemia Enoxaparin Sodium (Lovenox) 40 mg SC BID [facility] Last Admin: 08/05/19 09:00 Dose: 40 mg Documented by: Famotidine (Pepcid) 20 mg PO BID [facility] Last Admin: 08/05/19 08:59 Dose: 20 mg Documented by: Glucagon () 1 mg IM .X1 PRN PRN Reason: Hypoglycemia Guaifenesin (Robitussin) 20 ml PO Q4H PRN PRN PRN Reason: COUGH Last Admin: 08/03/19 21:14 Dose: 20 ml Documented by: Hydralazine HCl (Apresoline Iv) 10 mg IV Q4H PRN PRN PRN Reason: SBP > 160 Last Admin: 08/05/19 00:20 Dose: 10 mg Documented by: Ceftriaxone Sodium 2 gm/ (Sodium Chloride) 50 mls @ 100 mls/hr IV Q24 [facility] Last Infusion: 08/05/19 10:15 Dose: Infused Documented by: Levothyroxine Sodium (Synthroid) 50 mcg PO DAILY [facility] Last Admin: 08/05/19 08:59 Dose: 50 mcg Documented by: Magnesium Hydroxide (Milk Of Magnesia) 30 ml PO DAILY PRN PRN PRN Reason: Constipation Melatonin (Melatonin) 3 mg PO QHS PRN PRN PRN Reason: INSOMNIA Morphine Sulfate () 2 mg IV Q3H PRN PRN PRN Reason: Pain Score 6-10/10 Nitroglycerin (Nitrostat) 0.4 mg SUBLINGUAL Q5M PRN PRN Reason: CARDIAC/CHEST PAIN Ondansetron HCl (Zofran) 4 mg IV Q8H PRN PRN PRN Reason: NAUSEA/VOMITING Last Admin: 08/04/19 08:08 Dose: 4 mg Documented by: Oxycodone HCl (Oxyir) 5 mg PO Q4H PRN PRN PRN Reason: Pain Score 4-5/10 Prochlorperazine Edisylate (Compazine Iv) 5 mg IV Q4H PRN PRN PRN Reason: Breakthrough Nausea/Vomiting Psyllium Hydrophilic Mucilloid (Metamucil) 1 packet PO DAILY PRN PRN PRN Reason: Constipation Senna/Docusate Sodium (Senokot-S, Khalida-Colace) 2 tablet PO BID PRN PRN PRN Reason: Constipation Simvastatin (Zocor) 40 mg PO QPM [facility] Last Admin: 08/04/19 21:06 Dose: 40 mg Documented by: Sodium Chloride () 10 - 40 ml IV UD PRN PRN Reason: SALINE FLUSH Last Admin: 08/05/19 09:09 Dose: 10 ml Documented by: Throat Lozenges (Cepacol Sore Throat Lozenge) 1 lozenge MUCOUS MEM Q2H PRN PRN PRN Reason: SORE THROAT Last Admin: 08/04/19 10:28 Dose: 1 lozenge Documented by: Medical Necessity - Tobacco Use Smoking Status: Never smoker Tobacco Use: Non-smoker Assessment/Plan All Active Problems (Last Updated 10/17/18 @ 15:15 by Zoe Diaz) Bilateral pneumonia (Acute) Suspected COVID-19 virus infection (Acute) Dyspnea (Acute) History of permanent cardiac pacemaker placement (Resolved 02/20/17) H/O coronary artery bypass surgery (Resolved 08/24/15) H/O aortic valve replacement (Resolved 08/24/15) History of coronary artery stent placement (Resolved 09/25/14) 1. pneumonia * pneumococcal v staph v viral * COVID 19 negative x 2, however, GGO on ct. Recheck again. Specificity and sensitivity for antibodies are low, so will discontinue. * continue CTX * will DC azithromycin * add vanc given staph in blood 2. bacteremia * staph aureus 1 of 2 bottles, so could be contaminant. * repeat blood cultures * if still positive, then may need TTE 3. VTE prophy: LMWH. 4. Disposition: pending overall improvement and culture results. Inpatient E&M: 32165 Subs Hosp L2
--- NOTE | 2019-08-05 15:19 | PCM.RX.CS ---
Consult Pharmacy has been consulted to manage selected antiobiotic: Vancomycin Type of Consult: New start Labs: Sodium 138 mmol/L (136-145) 08/05/19 03:30 Potassium 4.0 mmol/L (3.5-5.1) 08/05/19 03:30 Chloride 107 mmol/L (98-107) 08/05/19 03:30 Carbon Dioxide 25.0 mmol/L (21.0-32.0) 08/05/19 03:30 Anion Gap 6 (5-15) 08/05/19 03:30 BUN 18 mg/dL (7-18) 08/05/19 03:30 Creatinine 0.95 mg/dL (0.70-1.30) 08/05/19 03:30 Est GFR (MDRD) Af Amer 100 mL/min (>60) 08/05/19 03:30 Est GFR (MDRD) Non-Af 83 mL/min (>60) 08/05/19 03:30 BUN/Creatinine Ratio 18.9 RATIO (10-20) 08/05/19 03:30 Glucose 104 mg/dL (74-106) 08/05/19 03:30 Microbiology: Microbiology 08/03/19 08:10 Blood Culture (Wb) - Right Hand Blood Culture - Preliminary No growth in 48 hours. 08/03/19 07:50 Blood Culture (Wb) - Anticubital Left Blood Culture - Preliminary Staphylococcus species 08/04/19 07:29 Mucosa - Nasopharyngeal Coronavirus COVID-19 PCR - Final 08/03/19 13:25 Urine, Clean Catch Streptococcus pneumoniae Antigen (M - Final 08/03/19 13:25 Urine, Clean Catch Legionella Antigen - Final 08/03/19 07:55 Mucosa - Nose Respiratory Panel (PCR) - Final 08/03/19 07:50 Mucosa - Nasopharyngeal Coronavirus COVID-19 PCR - Final Goal Trough: 15-20 mcg/mL Pharmacy Plan for Drug Dosing: NEW START IV VANCOMYCIN Consulting Physician: Jamie Indication: bacteremia/ pneumonia Goal Trough: 15-20 SrCr: 0.95 CrCl: 69 mL/min Comments: Loading dose x1 and high trough ordered. Vancomcyin Dose: 2g IV loading dose x1 (admin 08/04 @1503), 1g IV Q12hr to start 08/05 @0300 Pending Level: 5/27/20 @0230 (Prior to 4th total dose of regimen per protocol) Pharmacy Service will continue to monitor and adjust dosing as required.
[2019-08-05] MEDS: Simvastatin 20 MG Tablet 40 MG PO (21:29)
[2019-08-06] VITALS (8 sets, daily range): BP systolic 117–166; BP diastolic 39–60; PULSE 60–92; RESP 17–18; TEMP 36.7–36.8; O2SAT 93–96
[2019-08-06] MEDS: Vancomycin IV 1,000 MG/200 ML BAG 200 MG IV (03:39)
[2019-08-06 05:31] LABS: Absolute Lymphocyte Count 1.65 X10^3/uL (0.83-4.51); Absolute Neutrophil Count 7.5 X10^3/uL (2.0-7.7); Basophil# 0.04 X10^3/uL; Basophil% 0.4 % (0-1); Eosinophil# 0.19 X10^3/uL; Eosinophils% 1.8 % (0-5); Hematocrit 32.8 % (40-54); Hemoglobin 10.9 g/dL (13.0-16.5); Lymphocyte # 1.65 X10^3/ul (4.0); Lymphocyte % 15.3 % (19-41); Mean Corp Hgb Conc 33.2 g/dL (32-36); Mean Corpuscular Hgb 31.5 pg (27.0-32.0); Mean Corpuscular Volume 94.8 fL (80-94); Monocyte# 1.38 X10^3/uL; Monocyte% 12.8 % (0-10); NRBC Flagged by Analyzer 0 % (0-5); Neutrophil # 7.49 X10^3/uL (2.7-7.7); Neutrophil % 69.4 % (47-70); Platelet Count 430 K/mm3 (150-450); RBC Distribution Width CV 12.7 % (11.6-14.6); RBC Distribution Width SD 43.8 fl (35.1-43.9); Red Blood Count 3.46 M/mm3 (4.6-6.2); White Blood Count 10.8 K/mm3 (4.4-11.0)
[2019-08-06 05:54] LABS: Anion Gap 5 (5-15); BUN 14 mg/dL (7-18); BUN/Creat Ratio 16.2 RATIO (10-20); Calcium,Total 8.2 mg/dL (8.5-10.1); Chloride 106 mmol/L (98-107); Creatinine, Serum 0.87 mg/dL (0.70-1.30); EST Glomerular Filtration Rate 92 mL/min (>60); Est Glom Filt Rate - Afr Amer 111 mL/min (>60); Estimated Creatinine Clearance 75.62 ml/min; Glucose 112 mg/dL (74-106); Potassium 3.8 mmol/L (3.5-5.1); Sodium Level 136 mmol/L (136-145)
[2019-08-06] MEDS: hydrALAZINE 20 MG/ML Vial 10 MG IV (08:56)
[2019-08-06] MEDS: 0.9% Saline Lock 10 ML Syringe IV ×2 (08:58→10:20)
[2019-08-06] MEDS: Aspirin E.C. 81 MG Tablet PO (10:19)
[2019-08-06] MEDS: Famotidine 20 MG Tablet PO (10:19)
[2019-08-06] MEDS: Levothyroxine 50 MCG Tablet PO (10:19)
[2019-08-06] MEDS: Enoxaparin 40 MG/0.4 ML Syringe SC (10:19)
--- NOTE | 2019-08-06 10:39 | NURSING ---
Patient up to bathroom - walking well, spo2 96%. Pt states he is hoping to be d/c'ed today.
--- NOTE | 2019-08-06 10:41 | CON.PCM_ITS ---
Problem List (1) Suspected COVID-19 virus infection Status: Acute Reason for Consult: COVID Consulted by: Dr. Ayala History of Present Illness: The patient is a 74 year old M with h/o valve replacement, presented with 2 weeks of headache, mild fever, nausea, dry cough, lost of taste/smell, fatigue, dyspnea. 3-4 member of his [employer] with COVID, including one hospitalized last week. has been feeling fine. Came to ED with worsening symptoms. Given vanc/ceftriaxone, now feeling better, off O2, no fever here. Full ROS performed and neg except as noted above. - Medical History Past Medical History (Chronic Problems): Chronic Problems (Last Updated 10/17/18 @ 15:15 by Zoe Diaz) Nonrheumatic aortic (valve) stenosis with insufficiency (Chronic) Atherosclerosis of coronary artery of [place] heart without angina pectoris (Chronic) Atherosclerosis of coronary artery bypass graft without angina pectoris (Chronic) HLD (hyperlipidemia) (Chronic) Sick sinus syndrome (Chronic) Allergies/Adverse Reactions: Allergies atorvastatin [From [employer]] Allergy (Verified 08/03/19 07:01) Unknown Home Medications: Ambulatory Orders Medication Instructions Recorded aspirin 81 mg tablet,delayed 81 mg PO QDAY 02/15/17 release coenzyme Q10 100 mg capsule 100 mg PO QDAY 02/15/17 nitroglycerin 0.4 mg sublingual 0.4 mg SUBLINGUAL Q5M PRN 02/15/17 tablet levothyroxine 50 mcg capsule 50 mcg PO DAILY #30 cap 03/20/18 simvastatin 40 mg tablet 40 mg PO QPM #90 tab 11/07/18 - Social History Tobacco Use: non-smoker Vital Signs Temp Pulse Resp BP Pulse Ox 98.3 F 92 18 125/39 H 96 08/06/19 07:45 08/06/19 10:28 08/06/19 10:28 08/06/19 10:28 08/06/19 10:40 Oxygen Flow Rate (L/min) 2 Oxygen Delivery Method Room Air Weight: 79.3 kg Body Mass Index (BMI) 25.4 Microbiology Past 72 Hours 08/05/19 13:14 Coronavirus COVID-19 PCR - Final Mucosa - Nasopharyngeal 08/03/19 08:10 Blood Culture - Preliminary Blood Culture (Wb) - Right Hand No growth in 48 hours. 08/03/19 07:50 Blood Culture - Preliminary Blood Culture (Wb) - Anticubital Left Staphylococcus species 08/04/19 07:29 Coronavirus COVID-19 PCR - Final Mucosa - Nasopharyngeal 08/03/19 13:25 Streptococcus pneumoniae Antigen (M - Final Urine, Clean Catch 08/03/19 13:25 Legionella Antigen - Final Urine, Clean Catch 08/03/19 07:55 Respiratory Panel (PCR) - Final Mucosa - Nose 08/03/19 07:50 Coronavirus COVID-19 PCR - Final Mucosa - Nasopharyngeal Laboratory Tests Past 24 Hrs 08/06/19 08/06/19 05:20 05:20 WBC 10.8 RBC 3.46 L Hgb 10.9 L Hct 32.8 L MCV 94.8 H MCH 31.5 MCHC 33.2 RDW Std Deviation 43.8 RDW Coeff of Jazmine 12.7 Plt Count 430 MPV 10.0 Immature Gran % (Auto) 0.300 Neut % (Auto) 69.4 Lymph % (Auto) 15.3 L [place] % (Auto) 12.8 H Eos % (Auto) 1.8 Baso % (Auto) 0.4 Absolute Neuts (auto) 7.5 Absolute Lymphs (auto) 1.65 Nucleated RBC % 0 Sodium 136 Potassium 3.8 Chloride 106 Carbon Dioxide 25.0 Anion Gap 5 BUN 14 Creatinine 0.87 Estim Creat Clear Calc 75.62 Est GFR (MDRD) Af Amer 111 Est GFR (MDRD) Non-Af 92 BUN/Creatinine Ratio 16.2 Glucose 112 H Calcium 8.2 L - Other Studies Radiology: [] reviewed Other Studies: [] Route of nutrition/ use of supplements: [] Nutritional Intake: [] IV Site: [] Brito Catheter: [] - Physical Exam General: Alert, Oriented x3, Cooperative, No apparent distress HEENT: Atraumatic, PERRLA, EOMI Neck: Supple, No Nodes Lungs: Clear to auscultation, Diminished Cardiovascular: Regular rate, Regular Rhythm Abdomen: Soft, Non Tender, Non-Distended Extremities: No edema Skin: No rashes IV Site: Peripheral, without redness Musculoskeletal: No Tenderness to Palpation of Joints or Extremities Neurological: Cranial nerves II-XII grossly intact - Assessment/Plan Antibiotics: [] Assessment/Plan: [] Active and Suspected Problems (Last Updated 10/17/18 @ 15:15 by Zoe Diaz) Bilateral pneumonia (Acute) Suspected COVID-19 virus infection (Acute) Dyspnea (Acute) strong suspicion for covid given exposure history, labwork, and symptoms despite neg covid pcr x3. Single Bcx with staph species, but PCR not done. Has pacer and h/o valve replacement. Overall feeling much better. Counseled re: need for him and his to isolate for another week. Ok for discharge off of abx; suspect single bcx with staph is a contaminant, will monitor after discharge. Will follow as needed, thank you, d/w Dr. Ayala.
--- NOTE | 2019-08-06 11:18 | DCINST_ITS ---
- Discharge Diagnoses Current Active Problems: Current Active and Chronic Problems (Last Updated 10/17/18 @ 15:15 by Zoe Diaz) Bilateral pneumonia (Acute) Suspected COVID-19 virus infection (Acute) Dyspnea (Acute) You will use the following diet at home:: No restrictions Your food should be the consistency of: Regular Discharge Activity: - - Isolate from family (other than your ) for the next week. If not possible, wear a mask while around others and have them wear a mask as well. Allergies/Adverse Reactions: Allergies atorvastatin [From [address]] Allergy (Verified 08/03/19 07:01) Unknown Medications to take at Discharge aspirin 81 mg tablet,delayed release 81 mg PO QDAY 02/15/17 coenzyme Q10 100 mg capsule 100 mg PO QDAY 02/15/17 nitroglycerin 0.4 mg sublingual tablet 0.4 mg SUBLINGUAL Q5M PRN 02/15/17 levothyroxine 50 mcg capsule 50 mcg PO DAILY #30 cap 03/20/18 simvastatin 40 mg tablet 40 mg PO QPM #90 tab 11/07/18 Primary Care Physician: Raymond Whitaker DO [Primary Care Provider] - Within 2 Weeks Test Results: Test results from this visit will be discussed in further detail at your follow- up appointment, if applicable. Proposed Discharge Date: 08/06/19
--- NOTE | 2019-08-06 11:20 | DS.PCM_ITS ---
Discharge Date and Diagnosis - Problem List Patient Problems: Active and Suspected Problems (Last Updated 10/17/18 @ 15:15 by Zoe Diaz) Bilateral pneumonia (Acute) Suspected COVID-19 virus infection (Acute) Dyspnea (Acute) Date of Admission: 08/03/19 Date of Discharge: 08/06/19 - Primary Discharge Diagnosis Acute Problems: Active Problems (Last Updated 10/17/18 @ 15:15 by Zoe Diaz) Bilateral pneumonia (Acute) Suspected COVID-19 virus infection (Acute) Dyspnea (Acute) - Secondary Discharge Diagnosis Chronic Problems: Chronic Problems (Last Updated 10/17/18 @ 15:15 by Zoe Diaz) Nonrheumatic aortic (valve) stenosis with insufficiency (Chronic) Atherosclerosis of coronary artery of [place] heart without angina pectoris (Chronic) Atherosclerosis of coronary artery bypass graft without angina pectoris (Chronic) HLD (hyperlipidemia) (Chronic) Sick sinus syndrome (Chronic) Hospital Course and Treatment Imaging Results: Clinical Impression(s) from Imaging Studies Chest X-Ray 08/03/19 07:26 IMPRESSION: Bilateral pneumonia or edema. Electronically Signed: Ovidio Ambrocio MD at 8:28 EDT , Service support , Chest CTA 08/03/19 12:12 IMPRESSION: 1. No central or segmental pulmonary embolism. 2. Peripheral, bilateral/multilobar groundglass opacities with scattered consolidation. Commonly reported imaging features of COVID-19 PNEUMONIA are present as suspected in provided clinical history. Other processes such as influenza pneumonia, organizing pneumonia, drug toxicity and connective tissue disease can cause similar imaging pattern. Electronically Signed: Franky Hubbard MD ([place]) at 14:36 EDT , Service support , [place]: KIYA Operations: None Procedures: None Summary of Care Provided: The patient is a 74 year old M presents with 2 weeks of headache, fever, nausea cough anosmia. Patient had been around members of her druze who tested positive for COVID. Patient presented to the emergency room where there was concern the patient had COVID but was started on broad-spectrum antibiotics. Patient had 3 COVID testings that were negative. Infectious disease was consulted and further input and feel, despite the negative COVID testing, the patient did have COVID-19 and recommend patient isolate. Antibiotics were discontinued and infectious he does not recommend any continued antibiotics at this time. Patient did have 1 blood culture did come back positive for staph aureus but felt to be contaminant as only 1 of 2 sets was positive. Repeat blood cultures were performed on which are thus far negative. Patient is otherwise doing well and will be discharged home. Patient instructed to maintain isolation with exception of his who likely has exposure as well for the next week. [] Patient Problems: Active and Suspected Problems (Last Updated 10/17/18 @ 15:15 by Zoe Diaz) Bilateral pneumonia (Acute) Suspected COVID-19 virus infection (Acute) Dyspnea (Acute) - Physical Exam Vitals/I&O's: Vital Signs Temp Pulse Resp BP Pulse Ox 36.8 C 92 18 125/39 H 96 08/06/19 07:45 08/06/19 10:28 08/06/19 10:28 08/06/19 10:28 08/06/19 10:40 Oxygen Flow Rate (L/min) 2 Oxygen Delivery Method Room Air Weight: 79.3 kg Body Mass Index (BMI) 25.4 Intake and Output for Last 24 Hours 08/04/19 08/05/19 08/06/19 23:59 23:59 23:59 Intake Total 2400 / 2640 1780 / 1780 1090 / 1090 Output Total 1250 / 1250 825 / 825 Balance 2400 / 2640 530 / 530 265 / 265 General: Alert, No apparent distress HEENT: Atraumatic, Normocephalic Oral: Moist Mucosa, No Gingival or Mucosal Lesions/ Ulcerations Neck: No Nodes, Trachea Midline Lungs: Clear to auscultation, Normal air movement, No rhonchi, No wheeze, No rales Cardiovascular: Regular rate, Regular Rhythm, Normal S1, Normal S2, No murmurs Abdomen: Bowel Sounds Present, Soft, Non Tender, Non-Distended, No Hepato- splenomegaly Extremities: No edema, No Calf Tenderness Psych/Mental Status: Normal Affect, Appropriate Microbiology Past 72 Hours 08/05/19 13:14 Mucosa - Nasopharyngeal Coronavirus COVID-19 PCR - Final 08/03/19 08:10 Blood Culture (Wb) - Right Hand Blood Culture - Preliminary No growth in 48 hours. 08/03/19 07:50 Blood Culture (Wb) - Anticubital Left Blood Culture - Preliminary Staphylococcus species 08/04/19 07:29 Mucosa - Nasopharyngeal Coronavirus COVID-19 PCR - Final 08/03/19 13:25 Urine, Clean Catch Streptococcus pneumoniae Antigen (M - Final 08/03/19 13:25 Urine, Clean Catch Legionella Antigen - Final 08/03/19 07:55 Mucosa - Nose Respiratory Panel (PCR) - Final 08/03/19 07:50 Mucosa - Nasopharyngeal Coronavirus COVID-19 PCR - Final Laboratory Results 08/06/19 05:20: WBC 10.8, RBC 3.46 L, Hgb 10.9 L, Hct 32.8 L, MCV 94.8 H, MCH 31.5, MCHC 33.2, RDW Std Deviation 43.8, RDW Coeff of Jazmine 12.7, Plt Count 430, MPV 10.0, Immature Gran % (Auto) 0.300, Neut % (Auto) 69.4, Lymph % (Auto) 15.3 L, [place] % (Auto) 12.8 H, Eos % (Auto) 1.8, Baso % (Auto) 0.4, Absolute Neuts (auto) 7.5, Absolute Lymphs (auto) 1.65, Nucleated RBC % 0 08/06/19 05:20: Sodium 136, Potassium 3.8, Chloride 106, Carbon Dioxide 25.0, Anion Gap 5, BUN 14, Creatinine 0.87, Estim Creat Clear Calc 75.62, Est GFR (MDRD) Af Amer 111, Est GFR (MDRD) Non-Af 92, BUN/Creatinine Ratio 16.2, Glucose 112 H, Calcium 8.2 L Current Medications Acetaminophen (Tylenol) 650 mg PO Q4H PRN PRN PRN Reason: Pain Score 1-10/Temp > 100.7 F Last Admin: 08/05/19 00:20 Dose: 650 mg Documented by: Al Hydroxide/Mg Hydroxide (Mylanta Ii) 30 ml PO Q6H PRN PRN PRN Reason: Gastric Burning Albuterol Sulfate (Ventolin Aerosols) 2.5 mg INHALATION Q2H PRN PRN PRN Reason: Dyspnea, wheezing Aspirin (Ecotrin) 81 mg PO DAILY JOSEPH Last Admin: 08/06/19 10:19 Dose: 81 mg Documented by: Dextrose (D50w Syringe) 0 gm IV X1 PRN; Protocol PRN Reason: Hypoglycemia Enoxaparin Sodium (Lovenox) 40 mg SC BID [facility] Last Admin: 08/06/19 10:19 Dose: 40 mg Documented by: Famotidine (Pepcid) 20 mg PO BID [facility] Last Admin: 08/06/19 10:19 Dose: 20 mg Documented by: Glucagon () 1 mg IM .X1 PRN PRN Reason: Hypoglycemia Guaifenesin (Robitussin) 20 ml PO Q4H PRN PRN PRN Reason: COUGH Last Admin: 08/03/19 21:14 Dose: 20 ml Documented by: Hydralazine HCl (Apresoline Iv) 10 mg IV Q4H PRN PRN PRN Reason: SBP > 160 Last Admin: 08/06/19 08:56 Dose: 10 mg Documented by: Sodium Chloride () 250 mls @ 15 mls/hr IV .[id number] PRN PRN Reason: Saline Flush Levothyroxine Sodium (Synthroid) 50 mcg PO DAILY [facility] Last Admin: 08/06/19 10:19 Dose: 50 mcg Documented by: Magnesium Hydroxide (Milk Of Magnesia) 30 ml PO DAILY PRN PRN PRN Reason: Constipation Melatonin (Melatonin) 3 mg PO QHS PRN PRN PRN Reason: INSOMNIA Morphine Sulfate () 2 mg IV Q3H PRN PRN PRN Reason: Pain Score 6-10/10 Nitroglycerin (Nitrostat) 0.4 mg SUBLINGUAL Q5M PRN PRN Reason: CARDIAC/CHEST PAIN Ondansetron HCl (Zofran) 4 mg IV Q8H PRN PRN PRN Reason: NAUSEA/VOMITING Last Admin: 08/04/19 08:08 Dose: 4 mg Documented by: Oxycodone HCl (Oxyir) 5 mg PO Q4H PRN PRN PRN Reason: Pain Score 4-5/10 Prochlorperazine Edisylate (Compazine Iv) 5 mg IV Q4H PRN PRN PRN Reason: Breakthrough Nausea/Vomiting Psyllium Hydrophilic Mucilloid (Metamucil) 1 packet PO DAILY PRN PRN PRN Reason: Constipation Senna/Docusate Sodium (Senokot-S, Khalida-Colace) 2 tablet PO BID PRN PRN PRN Reason: Constipation Simvastatin (Zocor) 40 mg PO QPM JOSEPH Last Admin: 08/05/19 21:29 Dose: 40 mg Documented by: Sodium Chloride () 10 - 40 ml IV UD PRN PRN Reason: SALINE FLUSH Last Admin: 08/06/19 10:20 Dose: 10 ml Documented by: Throat Lozenges (Cepacol Sore Throat Lozenge) 1 lozenge MUCOUS MEM Q2H PRN PRN PRN Reason: SORE THROAT Last Admin: 08/04/19 10:28 Dose: 1 lozenge Documented by: Discharge Diet: No Restrictions Discharge Activity: - - Isolate from family (other than your ) for the next week. If not possible, wear a mask while around others and have them wear a mask as well. Home Medications: Medications to take at Discharge aspirin 81 mg tablet,delayed release 81 mg PO QDAY 02/15/17 coenzyme Q10 100 mg capsule 100 mg PO QDAY 02/15/17 nitroglycerin 0.4 mg sublingual tablet 0.4 mg SUBLINGUAL Q5M PRN 02/15/17 levothyroxine 50 mcg capsule 50 mcg PO DAILY #30 cap 03/20/18 simvastatin 40 mg tablet 40 mg PO QPM #90 tab 11/07/18 Primary Care Physician: Raymond Whitaker DO [Primary Care Provider] - Within 2 Weeks Disposition: Home Minutes spent on discharge:: 32 Patient Condition:: Good Medical Necessity - Tobacco Use Smoking Status: Never smoker Tobacco Use: Non-smoker Meaningful Use Info Meaningful Use Diagnoses (Choose all that apply): None applicable Inpatient E&M: 39989 Disch Hosp
[2019-08-07 14:53] LABS: SAR-COV-2 IGG ANTIBODY POSITIVE
[2019-08-07 14:54] LABS: SAR-COV-2 IGM ANTIBODY POSITIVE
== END 2019-08-06 13:15 | disposition home or self-care (01) | DRG 177 ==
LOC: ED 09:14 → ICU 09:40
PROVIDERS: Admitting Provider Family Medicine; Emergency Provider Emergency Medicine; PCP Family Medicine
DX: U07.1 COVID-19 (principal); J12.89 Other viral pneumonia; R09.02 Hypoxemia; R73.9 Hyperglycemia, unspecified; I25.10 Atherosclerotic heart disease of native coronary artery without angina pectoris; E03.9 Hypothyroidism, unspecified; E78.5 Hyperlipidemia, unspecified; I35.2 Nonrheumatic aortic (valve) stenosis with insufficiency; Z79.82 Long term (current) use of aspirin; Z79.890 Hormone replacement therapy; Z95.0 Presence of cardiac pacemaker; Z95.1 Presence of aortocoronary bypass graft; Z95.3 Presence of xenogenic heart valve; Z79.899 Other long term (current) drug therapy
CPT/HCPCS: 71045; 71275; 80048; 80053; 82550; 82728; 83036; 83605; 83615; 83735; 83880; 84145; 84484; 85025; 85379; 85610; 85730; 86140; 86769; 87040; 87077; 87186; 87449; 87633; 87635; 87641; 93005; 99285; G2023; J7030; J7040; Q9967; A4216; J0696; J2405; U0004

== ENCOUNTER → 2019-11-05 08:46 | Outpatient (CLI) | payer SELFPAY, OTHER ==
[2019-10-14 08:53] VITALS: BMI 26.2
--- NOTE | 2019-11-05 08:48 | ECHOD_ITS ---
Reason For Study: VALVE REPLACEMENT EVAL Procedure This was a 2D Doppler, Color Flow transthoracic echocardiogram. Exam performed in department. Left Ventricle Normal LV size. Left ventricular systolic function is normal. The estimated ejection fraction is 60 %. Stage 1 diastolic dysfunction. Right Ventricle Normal RV size. ICD or pacer leads identified within the right ventricle. Normal systolic function. Atria The left atrium is moderately enlarged. Normal right atrium. Mitral Valve There is mild to moderate mitral annular calcification. Mild focal mitral valve calcification of the anterior leaflet. Tricuspid Valve Normal tricuspid valve. Mild (1+) tricuspid valve insufficiency. Aortic Valve Peak aortic valve gradient 34 mmHg. Mean aortic valve gradient 20 mmHg. Stable appearing mechanical aortic valve apparatus. Pulmonic Valve Normal pulmonic valve. Great Vessels Normal aortic root. The pulmonary artery is normal size. Normal inferior vena cava. Pericardium/Pleural No pericardial effusion. MMode/2D Measurements & Calculations LVIDd: 4.9 cm IVSd: 1.1 cm Ao root diam: 2.7 cm LVIDs: 3.4 cm LVPWd: 1.2 cm RVDd: 4.1 cm FS: 29.5 % LAV(MOD-bp): 102.2 ml LA A4 area: 27.4 cm2 LA dimension(2D): 4.7 cm LAV(MOD-bp) Indexed: 52.4 ml/m2 LAV(MOD-sp2): 104.9 ml LAV(MOD-sp4): 91.5 ml RA A4 area: 15.9 cm2 Time Measurements MV dec time: 0.22 sec Doppler Measurements & Calculations MV E max harjeet: 96.3 cm/sec Lat Peak E' Harjeet: 8.8 cm/sec Med Peak E' Harjeet: 6.3 cm/sec MV A max harjeet: 121.3 cm/sec E/E' lat: 10.9 E/E' med: 15.4 MV E/A: 0.79 Ao V2 max: 294.4 cm/sec LV V1 max: 144.3 cm/sec PA V2 max: 98.8 cm/sec Ao max P.7 mmHg LV V1 max P.4 mmHg Ao V2 mean: 213.4 cm/sec LV V1 mean P.9 mmHg Ao mean P.0 mmHg LV V1 mean: 106.1 cm/sec Ao V2 VTI: 68.4 cm LV V1 VTI: 34.9 cm TR max harjeet: 220.9 cm/sec TR max P.5 mmHg Interpretation Summary Normal LV size. Left ventricular systolic function is normal. Stage 1 diastolic dysfunction. The estimated ejection fraction is 60 %. Mean aortic valve gradient 20 mmHg. Stable appearing mechanical aortic valve apparatus. Ordering Physician: Mita Menjivar Referring Physician: Raymond Whitaker Performed By: Libia Putnam, YUNIOR, RVT
== END ==
PROVIDERS: PCP Family Medicine; Referring Provider Physician Assistant Medical; Visit Provider Physician Assistant Medical
DX: I35.2 Nonrheumatic aortic (valve) stenosis with insufficiency (principal); Z95.2 Presence of prosthetic heart valve
CPT/HCPCS: 93306

== ENCOUNTER → 2024-01-12 | Outpatient (CLI) | payer SELFPAY, OTHER ==
--- NOTE | 2024-01-12 13:33 | ECHOD_ITS ---
Reason For Study: AORTIC VALVE REPLACEMENT Procedure This was a 2D Doppler, Color Flow transthoracic echocardiogram. Exam performed in department. Left Ventricle Normal LV size. Left ventricular systolic function is normal. The left ventricular ejection fraction is 60 %. Stage 1 diastolic dysfunction. No regional wall motion abnormalities noted. Right Ventricle Normal RV size. ICD or pacer leads identified within the right ventricle. Normal systolic function. Atria The left atrium is mildly enlarged. Normal right atrium. Mitral Valve There is moderate mitral annular calcification. Tricuspid Valve Normal tricuspid valve. Mild (1+) tricuspid valve insufficiency. Pulmonary artery systolic pressure is 24 mmHg. Aortic Valve Peak aortic valve gradient 36 mmHg. Mean aortic valve gradient 20 mmHg. Bileaflet mechanical aortic valve. Great Vessels Normal aortic root. Pericardium/Pleural No pericardial effusion. MMode/2D Measurements & Calculations LVIDd: 4.8 cm IVSd: 0.98 cm LVOT diam: 2.0 cm LVIDs: 2.3 cm LVPWd: 1.0 cm LVOT area: 3.1 cm2 RVDd: 4.0 cm FS: 52.0 % asc Aorta Diam: 3.3 cm LAV(MOD-bp): 68.8 ml LVAd ap4: 25.5 cm2 LAV(MOD-bp) Indexed: 34.7 ml/m2 LVLd ap4: 7.8 cm LAV(MOD-sp2): 69.1 ml EDV(MOD-sp4): 70.4 ml LAV(MOD-sp4): 66.3 ml EDV(sp4-el): 70.8 ml LVAs ap4: 12.1 cm2 LVLs ap4: 6.1 cm ESV(MOD-sp4): 20.5 ml ESV(sp4-el): 20.5 ml EF(MOD-sp4): 70.8 % EF(sp4-el): 71.0 % SV(MOD-sp4): 49.9 ml SV(MOD-sp2): 54.5 ml LVAd ap2: 27.1 cm2 LVLd ap2: 7.6 cm SI(MOD-sp4): 25.1 ml/m2 SI(MOD-sp2): 27.5 ml/m2 EDV(MOD-sp2): 79.5 ml EDV(sp2-el): 82.0 ml LVAs ap2: 14.0 cm2 LVLs ap2: 6.6 cm ESV(MOD-sp2): 25.0 ml ESV(sp2-el): 25.1 ml EF(MOD-sp2): 68.6 % SV(sp4-el): 50.3 ml Ao sinus diam: 2.[address] [place]: 2.2 cm LA A4 area: 22.1 cm2 LA dimension(2D): 5.0 cm RA A4 area: 13.3 cm2 TAPSE: 1.5 cm Time Measurements MV dec time: 0.35 sec Doppler Measurements & Calculations MV E max harjeet: 110.4 cm/sec Lat Peak E' Harjeet: 8.3 cm/sec Med Peak E' Harjeet: 7.8 cm/sec MV A max harjeet: 149.3 cm/sec E/E' lat: 13.3 E/E' med: 14.1 MV E/A: 0.74 MV V2 max: 151.9 cm/sec Ao V2 max: 299.3 cm/sec MV max P.2 mmHg MV dec slope: 315.4 cm/sec2 Ao max P.8 mmHg MV V2 mean: 87.3 cm/sec Ao V2 mean: 213.9 cm/sec MV mean P.5 mmHg Ao mean P.3 mmHg MV V2 VTI: 53.6 cm Ao V2 VTI: 71.0 cm AV (velocity ratio): 0.45 MVA(VTI): 1.8 cm2 TIM(I,D): 1.4 cm2 TIM(V,D): 1.3 cm2 LV V1 max: 126.6 cm/sec SV(LVOT): 98.7 ml PA V2 max: 92.5 cm/sec LV V1 max P.4 mmHg PA max PG (full): 1.9 mmHg LV V1 mean P.0 mmHg LV V1 mean: 95.6 cm/sec LV V1 VTI: 32.2 cm TR max harjeet: 230.1 cm/sec TR max P.2 mmHg ECHO/Echo Complete Interpretation Summary Normal LV size. Left ventricular systolic function is normal. The left ventricular ejection fraction is 60 %. Stage 1 diastolic dysfunction. The left atrium is mildly enlarged. Bileaflet mechanical aortic valve. Mean aortic valve gradient 20 mmHg. Compared to previous study, the left ventricular systolic function is the same. . Ordering Physician: Urban Turner Referring Physician: Urban Turner Performed By: Beverley Banks RDCS
== END | disposition home or self-care (01) ==
PROVIDERS: PCP Family Medicine; Referring Provider Nurse Practitioner Family; Visit Provider Nurse Practitioner Family
DX: Z95.1 Presence of aortocoronary bypass graft (principal); Z95.5 Presence of coronary angioplasty implant and graft; Z95.0 Presence of cardiac pacemaker; I51.7 Cardiomegaly
CPT/HCPCS: 93306

== ENCOUNTER 2024-03-04 10:59 | Day surgery (SDC) | payer OTHER, SELFPAY ==
--- NOTE | 2024-02-29 11:35 | RAD_ITS ---
STUDY: X-RAY CHEST REASON FOR EXAM: Male, 78 years old. For PPM generator change TECHNIQUE: Frontal and lateral views of the chest. COMPARISON: 08/03/2019. FINDINGS: The lungs are clear and expanded. No pneumothorax. There is no demonstrated pleural abnormality. Normal size heart. Previous CABG. Pacemaker is seen with leads terminating in the right atrium and right ventricle. Normal mediastinum and kim. Normal visualized pulmonary arteries. Normal visualized aortic arch and descending thoracic aorta. Normal visualized thoracic spine. Normal visualized ribs, clavicles, and shoulders. There is no demonstrated abnormality of the visualized soft tissue structures of the upper abdomen. RAD/Chest PA and Lateral IMPRESSION: No definite acute or significant abnormality seen. Electronically Signed: Sina Piña MD at 23:55 EST ,
[2024-02-29 11:48] LABS: Bacteria 0 SEEN /hpf (None Seen); Mucous, Urine 0 SEEN /hpf (<or=2+); Red Blood Cells-Urine 0 SEEN /hpf (0-5)
[2024-02-29 12:14] LABS: Color, Urine Yellow (Yellow); Glucose, Dipstick Normal (Normal); Ketone-Dipstick Negative (Negative); Leukocyte Esterase-Dipstick 25 /ul (Negative); Nitrite-Dipstick Negative (Negative); Occult Blood-Urine Negative /ul (Negative); Protein-Dipstick 15 mg/dl (Negative); Specific Gravity, Urine 1.015 (1.002-1.030); Urine Bilirubin Dipstick Negative (Negative); Urine Clarity Clear (Clear); Urine Urobilinogen Normal (Normal)
[2024-02-29 12:21] LABS: Squamous Epithelial Cells - UA 0-5 SEEN /hpf (0-5); White Blood Cells 0-5 SEEN /hpf (0-5)
[2024-02-29 12:29] LABS: Absolute Lymphocyte Count 2.16 X10^3/uL (0.83-4.51); Absolute Neutrophil Count 6.2 X10^3/uL (2.0-7.7); Basophil# 0.05 X10^3/uL; Basophil% 0.5 % (0-1); Eosinophil# 0.22 X10^3/uL; Eosinophils% 2.3 % (0-5); Hematocrit 37.8 % (40-54); Hemoglobin 12.8 g/dL (13.0-16.5); Lymphocyte # 2.16 X10^3/ul (0.83-4.51); Lymphocyte % 22.8 % (19-41); Mean Corp Hgb Conc 33.9 g/dL (32-36); Mean Corpuscular Hgb 31.7 pg (27.0-32.0); Mean Corpuscular Volume 93.6 fL (80-94); Mean Platelet Vol. 11.9 fl (6.2-12.0); Monocyte# 0.84 X10^3/uL; Monocyte% 8.9 % (0-10); NRBC Flagged by Analyzer 0 % (0-5); Neutrophil # 6.18 X10^3/uL (2.7-7.7); Neutrophil % 65.3 % (47-70); Platelet Count 242 K/mm3 (150-450); RBC Distribution Width CV 13.2 % (11.6-14.6); RBC Distribution Width SD 45.3 fl (35.1-43.9); Red Blood Count 4.04 M/mm3 (4.6-6.2); White Blood Count 9.5 K/mm3 (4.4-11.0)
[2024-02-29 13:16] LABS: ALB/GLOB Ratio 0.8 RATIO (0.9-2.4); AST(SGOT) 24 U/L (15-37); Alanine Aminotransfer ALT/SGPT 35 U/L (16-61); Albumin, Serum 3.6 g/dL (3.2-5.0); Alkaline Phosphatase 113 U/L (45-117); Anion Gap 6 (5-15); BUN 26 mg/dL (7-18); BUN/Creat Ratio 19.8 RATIO (10-20); Calcium,Total 9.1 mg/dL (8.5-10.1); Chloride 105 mmol/L (98-107); Cholesterol 263 mg/dL (200); Creatinine, Serum 1.31 mg/dL (0.70-1.30); EST Glomerular Filtration Rate 56 mL/min (>60); Est Glom Filt Rate - Afr Amer 68 mL/min (>60); Globulin 4.4 g/dL (2.2-4.2); Glucose 95 mg/dL (74-106); High Density Lipoprotein 51 mg/dL; Potassium 4.4 mmol/L (3.5-5.1); Sodium Level 136 mmol/L (136-145); Triglycerides 68 mg/dL; Very Low Density Lipoprotein 14 mg/dL (5-40)
[2024-03-01 07:40] VITALS: BMI 27.0
--- NOTE | 2024-03-04 13:10 | TISS_PTH ---
PATIENT: DEREK TAVAREZ LOC: [facility] U#:[id number] AGE/SX: 78/M ROOM: RE03/04/[address]: Dr. Hoang Benson MD : 1945 BED: DIS: 03/04/2024 SPEC #: [id number] RECD: 03/04/24 13:57 STATUS: FE REBlaise #: [id number] JAYE: 03/04/24 13:[address]: Hoang Benson DEPT: SURGICAL PATHOLOGY RECD BY: Naresh Douglas ENTERED: 03/04/24 14:21 SP TYPE: Tissue Bx KIMBERLY DR: Dr. Bao Leija, Tissues: A - TISSUE SURGICALLY REMOVED B - FOREIGN BODY Procedures: Surgery Specimen Level I Surgery Specimen Level IV HEADER OPERATION: Pacemaker generator change PRE-OP DIAGNOSIS: Pacemaker malfunction TISSUE SUBMITTED: A. Tissue pacemaker pocket, B. Pacemaker MICROSCOPIC DIAGNOSIS A. Pacemaker: Metallic battery (gross only) B. Tissue pacemaker pocket: A piece of fibrinous material. RAVIN 03/05/2024 MICROSCOPIC DESCRIPTION Slides are reviewed. GROSS DESCRIPTION A . Received is one container labeled with the patient name and designated pacemaker. Received is a metallic battery. Battery measures 5 x 4.5 x 0.5 cm.. Inscription on the battery as follows: Battery type - DDDR, Model L111, SN [id number], [employer], [employer]. The specimen is for gross identification only. B. Received is one container labeled with the patient name and designated tissue pacemaker pocket. The specimen consists of a piece soto soft tissue that measures 1.2 x 0.5 x 0.2 cm. The specimen is totally submitted in one cassette. /RAVIN:maryuri 03/04/24 TC:5 CPT:81095, 99588
[2024-03-04 13:32] LABS: Pathology Specimen Additional SEE PATHOLOGY REPORT; Surgical Specimen Collection SEE PATHOLOGY REPORT
--- NOTE | 2024-03-04 13:50 | CL.IE_ITS ---
Patient: DEREK TAVAREZ Study Date: 03/04/2024 Performing: Hoang Benson MD : 1945 Age: 78 Gender: male PROCEDURES PERFORMED LP07-(07090)BATTERY REMOVAL+REPLACEMENT PACER-DUAL LEAD INDICATIONS End-of-life replacement indicator Sinoatrial node dysfunction/Sick sinus syndrome PROCEDURE DETAILS The patient was brought to the Catheterization Lab in the postabsorptive nonsedated state. Informed consent was obtained prior to the procedure. Local anesthetic was given subcutaneously to the left upper chest area with Lidocaine 2%. Incision was made to the left upper chest. Old PPM generator was removed. New PPM generator was attached to the lead(s) and inserted into the pocket. Device pocket was irrigated with antibiotic, Ancef.. PPM generator was then interrogated by the senior mainframe programmer analyst. Subcutaneous closure was completed with 3-0 Vicryl. Skin closure was completed with 4-0 Vicryl. Steri-strips applied to Lt chest area. The patient tolerated the procedure well. Creamed colored tissue specimen removed from the patient with the old device. Suspicious for contained healed infection. The specimen and device were sent to pathology for further testing. The pocket was rinsed with copious amounts of antibiotic, Ancef. No redness noted. Estimated Blood Loss: 10 ml's IMPLANTED / EX-PLANTED DEVICES IMPLANTED DEVICE(S): PPM Generator - Heating And Blending Supervisor: [employer], Model # L111 , Serial # [id number] DEVICE PARAMETERS DEVICE PARAMETERS: Mode- DDDR Lower rate- 60 Upper rate- 130 CONCLUSIONS / RECOMMENDATIONS Device Conclusions: Successful implantation of a dual chamber pacemaker battery change and replacement Device Recommendations: Follow up with Primary Care Physician PROCEDURE MEDICATIONS Fentanyl 50 mcg IV Versed 1 mg IV Versed 1 mg IV Oxygen: 2 L/min via nasal cannula Ancef 2 Gm IV @ 03/04/2024 12:21:47 Signed By Hoang Benson MD On 03/04/2024 13:49:54 Hoang Benson MD
== END 2024-03-04 14:58 | disposition home or self-care (01) ==
PROVIDERS: Nurse Practitioner Family; Physician Assistant Medical; PCP Family Medicine; Referring Provider Internal Medicine Cardiovascular Disease; Visit Provider Internal Medicine Cardiovascular Disease
DX: Z45.010 Encounter for checking and testing of cardiac pacemaker pulse generator [battery] (principal); I49.5 Sick sinus syndrome; T82.111A Breakdown (mechanical) of cardiac pulse generator (battery), initial encounter; Z95.1 Presence of aortocoronary bypass graft; I25.10 Atherosclerotic heart disease of native coronary artery without angina pectoris; Z95.5 Presence of coronary angioplasty implant and graft; Z79.82 Long term (current) use of aspirin; Z79.890 Hormone replacement therapy; Z79.899 Other long term (current) drug therapy; E03.9 Hypothyroidism, unspecified; Z87.891 Personal history of nicotine dependence; E78.2 Mixed hyperlipidemia; I10 Essential (primary) hypertension; Z95.2 Presence of prosthetic heart valve; Y71.8 Miscellaneous cardiovascular devices associated with adverse incidents, not elsewhere classified
CPT/HCPCS: 33228; 36415; 71046; 80053; 80061; 81001; 84443; 85025; 87070; 87075; 87205; 88300; 88305; 99152; 99153

== ENCOUNTER → 2025-02-18 | Outpatient (CLI) | payer OTHER, SELFPAY ==
[2025-02-18 17:37] LABS: AST(SGOT) 21 U/L (<=37); Alanine Aminotransfer ALT/SGPT 22 U/L (<=46); Albumin, Serum 4.0 g/dL (3.4-4.8); Alkaline Phosphatase 88 U/L (40-129); Bilirubin, Direct 0.08 mg/dL (0.00-0.30); Cholesterol 256 mg/dL (<=200); Globulin 3.6 g/dL (2.2-4.2); Low Density Lipoprotein Calc. 185 mg/dL; Triglycerides 179 mg/dL; Very Low Density Lipoprotein 36 mg/dL (5-40); cholesterol:hdl ratio screen 6.86
== END | disposition home or self-care (01) ==
LOC: LAB 15:28
PROVIDERS: PCP Family Medicine; Referring Provider Internal Medicine Cardiovascular Disease; Visit Provider Internal Medicine Cardiovascular Disease
DX: E78.2 Mixed hyperlipidemia (principal)
CPT/HCPCS: 36415; 80061; 80076